=== PATIENT | female | born 1965 | race Caucasian/White ===

== ENCOUNTER → 2018-04-27 13:51 | Outpatient (CLI) | payer OTHER, SELFPAY ==
--- NOTE | 2018-04-27 13:54 | BI_ITS ---
MAMMOGRAPHY - BILATERAL SCREENING REASON FOR EXAM: Female, 52 years old. Routine annual screening examination. PERTINENT HISTORY: Sister with breast cancer. Aunts with breast cancer. TECHNIQUE: Digital bilateral breast parrish (3D mammographic acquisition) in the CC and MLO projections. 2-D mediolateral oblique (MLO) and craniocaudad (CC) views of both breasts were obtained. CAD: Full Field Digital Mammography with Computer Added Detection was performed. COMPARISON: Comparison is made with prior examination dated April 05, 2015 and December 14, 2013. FINDINGS: Breast Composition: There are scattered areas of fibroglandular density. There are no dominant masses or suspicious calcifications. Stable appearance of the bilateral axillary lymph nodes. No other significant abnormalities are identified. There has been no significant change since the prior study. BI/SCREENING MAMM (CAD), BILAT IMPRESSION: Stable bilateral screening mammogram. Yearly follow-up mammogram recommended. (A) ASSESSMENT CATEGORY: BIRADS Category 1: Negative. A letter regarding these results will be sent to the patient by the facility within 30 days. Approximately 10% of breast cancers are not detected by mammography. A normal mammogram should not delay biopsy of a clinically suspicious abnormality. [id number] Electronically Signed: Venancio Thacker MD at 15:26 EST Tel [phone], Service support ,
--- NOTE | 2018-04-27 14:29 | ECHOD_ITS ---
Reason For Study: BICUSPID AV Procedure This was a 2D Doppler, Color Flow transthoracic echocardiogram. The exam was of fair technical quality due to body habitus. Exam performed in department. Left Ventricle Normal LV size. Mild concentric left ventricular hypertrophy. Left ventricular systolic function is normal. The estimated ejection fraction is 65 %. There is evidence of diastolic dysfunction. No regional wall motion abnormalities noted. Apical wall motion abnormality may reflect pacemaker activation. Right Ventricle Normal RV size. ICD or pacer leads identified within the right ventricle. Normal systolic function. Atria The left atrium is mildly enlarged. Normal right atrium. ICD or pacer leads identified within the right atrium. No doppler evidence for ASD. Mitral Valve There is mild mitral annular calcification. Extension of the mitral annular calcification onto the posterior mitral valve leaflet. Mild (1+) eccentric mitral valve insufficiency. Tricuspid Valve Normal tricuspid valve. Moderate (2+) tricuspid valve insufficiency. Right ventricular systolic pressure estimated to be 29 mmHg. Aortic Valve The aortic valve is not well visualized. Moderate focal aortic valve thickening. Moderate focal aortic valve calcification. Severe aortic stenosis. Trivial aortic valve insufficiency. Pulmonic Valve The pulmonic valve is not well visualized. Trivial pulmonic valve insufficiency. Great Vessels Normal sized aortic root. Pericardium/Pleural No pericardial effusion. MMode/2D Measurements & Calculations LVIDd: 4.2 cm IVSd: 1.4 cm LVOT diam: 2.1 cm LVIDs: 2.9 cm LVPWd: 1.3 cm LVOT area: 3.6 cm2 RVDd: 3.8 cm FS: 29.7 % Ao root diam: 3.5 cm LAV(MOD-bp): 79.1 ml LVAd ap4: 27.5 cm2 LAV(MOD-bp) Indexed: 36.5 ml/m2 EDV(MOD-sp4): 75.6 ml LAV(MOD-sp2): 80.9 ml EDV(sp4-el): 79.5 ml LAV(MOD-sp4): 71.3 ml LVAs ap4: 14.0 cm2 ESV(MOD-sp4): 26.1 ml ESV(sp4-el): 26.9 ml EF(MOD-sp4): 65.5 % EF(sp4-el): 66.1 % SV(MOD-sp4): 49.5 ml SV(sp4-el): 52.6 ml Aortic Valve Planimetry: 1.0 cm2 LA A4 area: 23.2 cm2 LA dimension(2D): 3.5 cm RA A4 area: 17.7 cm2 Time Measurements MV dec time: 0.16 sec Doppler Measurements & Calculations MV E max anderson: 106.1 cm/sec Lat Peak E' Anderson: 7.0 cm/sec Med Peak E' Anderson: 4.6 cm/sec MV A max anderson: 57.4 cm/sec E/E' lat: 15.2 E/E' med: 22.8 MV E/A: 1.8 Ao V2 max: 401.6 cm/sec AI max anderson: 466.4 cm/sec LV V1 max: 92.7 cm/sec Ao max P.8 mmHg AI max P.0 mmHg LV V1 max P.4 mmHg Ao V2 mean: 317.2 cm/sec AI dec slope: 312.6 cm/sec2 LV V1 mean P.0 mmHg Ao mean P.0 mmHg AI P1/2t: 437.0 msec LV V1 mean: 65.9 cm/sec Ao V2 VTI: 106.9 cm LV V1 VTI: 24.0 cm DAYTON(I,D): 0.81 cm2 DAYTON(V,D): 0.83 cm2 SV(LVOT): 86.2 ml PA V2 max: 92.2 cm/sec TR max anderson: 254.0 cm/sec TR max P.9 mmHg Interpretation Summary Left ventricular systolic function is normal. The estimated ejection fraction is 65 %. Mild concentric left ventricular hypertrophy. Apical wall motion abnormality may reflect pacemaker activation. The left atrium is mildly enlarged. There is mild mitral annular calcification. Extension of the mitral annular calcification onto the posterior mitral valve leaflet. Mild (1+) eccentric mitral valve insufficiency. Moderate (2+) tricuspid valve insufficiency. Severe aortic stenosis. Trivial aortic valve insufficiency. Trivial pulmonic valve insufficiency. Right ventricular systolic pressure estimated to be 29 mmHg. There is evidence of diastolic dysfunction. ICD or pacer leads identified within the right atrium ICD or pacer leads identified within the right ventricle. Ordering Physician: Carolina Leblanc/Daryl Lamb Referring Physician: DARYL ECHAVARRIA Performed By: Maricarmen Beltran, HERMINIOCS, RVT
== END ==
PROVIDERS: Family Provider Family Medicine; PCP Family Medicine; Visit Provider Family Medicine
DX: Q23.1 Congenital insufficiency of aortic valve (principal); Z12.31 Encounter for screening mammogram for malignant neoplasm of breast
CPT/HCPCS: 77063; 77067; 93306

== ENCOUNTER 2018-06-26 11:21 | Emergency (ER) | payer OTHER, SELFPAY ==
[2018-06-26 11:22] VITALS: BP 118/75; PULSE 69; RESP 16; TEMP 36.3; O2SAT 98; BMI 36.5
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
[2018-06-26] MEDS: Ondansetron ODT 4 MG Tablet PO (12:23)
[2018-06-26] MEDS: Ibuprofen 400 MG Tablet 800 MG PO (12:24)
[2018-06-26] MEDS: AMOXICILLIN 500 MG CAPSULE 1000 MG PO (12:24)
== END 2018-06-26 12:31 | disposition home or self-care (01) ==
LOC: ED 12:10
PROVIDERS: Emergency Provider Emergency Medicine; Family Provider Family Medicine; PCP Family Medicine
DX: S16.1XXA Strain of muscle, fascia and tendon at neck level, initial encounter (principal); S50.812A Abrasion of left forearm, initial encounter; S39.91XA Unspecified injury of abdomen, initial encounter; Y04.2XXA Assault by strike against or bumped into by another person, initial encounter; Y93.89 Activity, other specified; Y92.89 Other specified places as the place of occurrence of the external cause; Y99.0 Civilian activity done for income or pay
CPT/HCPCS: 99285

== ENCOUNTER → 2018-07-20 17:08 | Outpatient (CLI) | payer OTHER, SELFPAY ==
[2018-07-20 16:52] VITALS: BMI 36.5
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
== END ==
PROVIDERS: Family Provider Family Medicine; PCP Family Medicine; Referring Provider Physician Assistant Surgical; Visit Provider Physician Assistant Surgical
DX: S39.012A Strain of muscle, fascia and tendon of lower back, initial encounter (principal)
CPT/HCPCS: 72040; 72072; 72110

== ENCOUNTER → 2018-07-29 17:15 | Outpatient (CLI) | payer OTHER, SELFPAY ==
[2018-07-20 16:52] VITALS: BMI 36.5
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
== END ==
PROVIDERS: Family Provider Family Medicine; PCP Family Medicine; Referring Provider Physician Assistant Surgical; Visit Provider Physician Assistant Surgical
DX: S16.1XXA Strain of muscle, fascia and tendon at neck level, initial encounter (principal)
CPT/HCPCS: 70450

== ENCOUNTER 2018-09-18 13:30 | Outpatient (RCR) | payer OTHER, SELFPAY ==
[2018-08-28 10:11] VITALS: BMI 36.5
[2018-09-07 09:43] VITALS: BMI 36.3
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
--- NOTE | 2018-10-21 18:57 | HP.PT.NRP ---
HP - Discharge Summary (1) - Patient Information KELVIN GATES was seen in my office for initial evaluation on 09/07/18. The following Plan of Care was established for this patient: Initial Frequency: 2x /Week Initial Duration: 4 Weeks This patient was last seen in our office . Pertinent comments regarding their Physical therapy will appear below: At this point I will be discontinuing this patient from physical therapy. I would be happy to see this patient again in the future if found appropriate by the physician. Thank you! Jania Vieyra, MPT
== END 2018-09-18 19:00 | disposition home or self-care (01) ==
LOC: PT 13:30
PROVIDERS: Family Provider Family Medicine; PCP Family Medicine; Referring Provider Physician Assistant Surgical; Visit Provider Physician Assistant Surgical
DX: S06.0X9D Concussion with loss of consciousness of unspecified duration, subsequent encounter (principal)
CPT/HCPCS: 97124; 97161; 97530

== ENCOUNTER → 2018-10-14 | Outpatient (CLI) | payer OTHER, SELFPAY ==
[2018-10-01 06:50] VITALS: BMI 36.3
[2018-10-14 17:37] LABS: Absolute Lymphocyte Count 2.48 X10^3/ul (0.83-4.51); Absolute Neutrophil Count 5.9 X10^3/uL (2.0-7.7); Basophil# 0.04 X10^3/uL; Basophil% 0.4 % (0-1); Eosinophil# 0.11 X10^3/uL; Eosinophils% 1.2 % (0-5); Hematocrit 42.8 % (37-47); Hemoglobin 14.4 g/dl (12.0-15.0); Lymphocyte # 2.48 X10^3/ul (4.0); Lymphocyte % 27.3 % (19-41); Mean Corp Hgb Conc 33.6 g/gl (32-36); Mean Corpuscular Hgb 30.8 pg (27.0-32.0); Mean Corpuscular Volume 91.5 fL (81-99); Mean Platelet Vol. 9.6 fl (6.2-12.0); Monocyte# 0.52 X10^3/uL; Monocyte% 5.7 % (0-10); Neutrophil % 65.2 % (47-70); Platelet Count 294 K/mm3 (150-450); RBC Distribution Width CV 13.2 % (11.6-14.6); RBC Distribution Width SD 43.4 fl (35.1-43.9); Red Blood Count 4.68 M/mm3 (4.2-5.4); White Blood Count 9.1 K/mm3 (4.4-11.0)
[2018-10-14 17:52] LABS: AST(SGOT) 20 U/L (15-37); Alanine Aminotransfer ALT/SGPT 36 U/L (13-56); Albumin, Serum 3.8 g/dL (3.2-5.0); Alkaline Phosphatase 110 U/L (45-117); Anion Gap 9 (5-15); BUN 12 mg/dL (7-18); BUN/Creat Ratio 13.1 RATIO (10-20); Calcium,Total 8.8 mg/dL (8.5-10.1); Chloride 102 mmol/L (98-107); Creatinine, Serum 0.92 mg/dL (0.55-1.02); EST Glomerular Filtration Rate 68 mL/min (>60); Est Glom Filt Rate - Afr Amer 82 mL/min (>60); Glucose 129 mg/dL (74-106); Lipase 196 U/L (73-393); POSITIVE COUNT NO; POSITIVE DIFFERENTIAL NO; POSITIVE MORPHOLOGY NO; Potassium 3.5 mmol/L (3.5-5.1); Protein, Total 7.8 g/dL (6.4-8.2); Sodium Level 140 mmol/L (136-145)
== END | disposition home or self-care (01) ==
LOC: MTLAB 16:09
PROVIDERS: Family Provider Family Medicine; PCP Family Medicine; Referring Provider Family Medicine; Visit Provider Family Medicine
DX: R10.9 Unspecified abdominal pain (principal)
CPT/HCPCS: 36415; 80053; 83690; 85025

== ENCOUNTER → 2018-10-20 | Outpatient (CLI) | payer OTHER, SELFPAY ==
[2018-10-01 06:50] VITALS: BMI 36.3
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
== END | disposition home or self-care (01) ==
LOC: CT 13:05
PROVIDERS: Family Provider Family Medicine; PCP Family Medicine; Referring Provider Family Medicine; Visit Provider Family Medicine
DX: R10.9 Unspecified abdominal pain (principal)
CPT/HCPCS: 74177; Q9967

== ENCOUNTER 2019-05-13 10:15 | Outpatient (RCR) | payer OTHER, SELFPAY ==
[2018-09-07 09:43] VITALS: BMI 36.3
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
== END 2019-05-13 19:00 | disposition home or self-care (01) ==
LOC: MASS 10:15
PROVIDERS: Family Provider Family Medicine; PCP Family Medicine; Referring Provider Family Medicine; Visit Provider Family Medicine
DX: M54.2 Cervicalgia (principal)
CPT/HCPCS: 97124

== ENCOUNTER → 2019-06-21 12:57 | Outpatient (CLI) | payer OTHER, SELFPAY ==
[2019-06-02 10:01] VITALS: BMI 36.8
--- NOTE | 2019-06-21 12:58 | ECHOD_ITS ---
Reason For Study: Murmur Procedure This was a 2D Doppler, Color Flow transthoracic echocardiogram. The study was technically difficult. Exam performed in department. Left Ventricle Normal LV size. Moderate concentric left ventricular hypertrophy. Mid cavitary false tendon noted. Left ventricular systolic function is normal. The estimated ejection fraction is 65 %. There is evidence of diastolic dysfunction. No regional wall motion abnormalities noted. Right Ventricle Normal RV size. ICD or pacer leads identified within the right ventricle. Normal systolic function. Atria The left atrium is moderately enlarged. Normal right atrium. ICD or pacer leads identified within the right atrium. No doppler evidence for ASD. Mitral Valve There is mild mitral annular calcification. Extension of the mitral annular calcification onto the base of the posterior mitral valve leaflet. Mild (1+) mitral valve insufficiency. Tricuspid Valve Normal tricuspid valve. Moderate (2+) tricuspid valve insufficiency. Right ventricular systolic pressure estimated to be 29 mmHg. Aortic Valve Based upon the 2D echocardiographic images obtained the aortic valve leaflets are not well visualized, however, based upon the images obtained there appears to be a bicuspid appearing aortic valve with diffuse thickening, calcification, and restriction. Severe aortic stenosis. Trivial aortic valve insufficiency. Pulmonic Valve The pulmonic valve is not well visualized. Trivial pulmonic valve insufficiency. Great Vessels Normal sized aortic root. Pericardium/Pleural No pericardial effusion. MMode/2D Measurements & Calculations LVIDd: 4.4 cm IVSd: 1.5 cm LVOT diam: 2.1 cm LVIDs: 2.7 cm LVPWd: 1.6 cm LVOT area: 3.6 cm2 FS: 39.5 % Ao root diam: 3.4 cm LAV(MOD-bp): 82.7 ml Aortic Valve Planimetry: 0.63 cm2 LA dimension: 3.8 cm LAV(MOD-bp) Indexed: 37.5 ml/m2 LAV(MOD-sp2): 80.1 ml LAV(MOD-sp4): 71.8 ml LA A4 area: 20.7 cm2 RA A4 area: 16.5 cm2 Time Measurements MV dec time: 0.27 sec Doppler Measurements & Calculations MV E max anderson: 74.4 cm/sec Lat Peak E' Anderson: 5.4 cm/sec Med Peak E' Anderson: 6.0 cm/sec MV A max anderson: 78.7 cm/sec E/E' lat: 13.9 E/E' med: 12.4 MV E/A: 0.95 MV V2 max: 87.6 cm/sec MV P1/2t max anderson: 87.6 cm/sec Ao V2 max: 458.1 cm/sec MV max P.1 mmHg MV P1/2t: 90.5 msec Ao max P.0 mmHg MV V2 mean: 55.5 cm/sec MV dec slope: 283.6 cm/sec2 Ao V2 mean: 338.8 cm/sec MV mean P.4 mmHg Ao mean P.6 mmHg MV V2 VTI: 26.4 cm MVA(P1/2t): 2.4 cm2 Ao V2 VTI: 117.6 cm MVA(VTI): 3.0 cm2 DAYTON(I,D): 0.67 cm2 DAYTON(V,D): 0.68 cm2 AI max anderson: 435.7 cm/sec LV V1 max: 86.2 cm/sec SV(LVOT): 78.8 ml AI max P.9 mmHg LV V1 max P.0 mmHg LV V1 mean P.5 mmHg AI dec slope: 325.4 cm/sec2 LV V1 mean: 56.6 cm/sec AI P1/2t: 392.2 msec LV V1 VTI: 21.8 cm PA V2 max: 74.2 cm/sec TR max anderson: 256.7 cm/sec TR max P.4 mmHg Interpretation Summary Left ventricular systolic function is normal. The estimated ejection fraction is 65 %. Moderate concentric left ventricular hypertrophy. Mid cavitary false tendon noted. The left atrium is moderately enlarged. There is mild mitral annular calcification. Extension of the mitral annular calcification onto the base of the posterior mitral valve leaflet. Mild (1+) mitral valve insufficiency. Moderate (2+) tricuspid valve insufficiency. Based upon the 2D echocardiographic images obtained the aortic valve leaflets are not well visualized, however, based upon the images obtained there appears to be a bicuspid appearing aortic valve with diffuse thickening, calcification, and restriction. Severe aortic stenosis. Trivial aortic valve insufficiency. Trivial pulmonic valve insufficiency. Right ventricular systolic pressure estimated to be 29 mmHg. There is evidence of diastolic dysfunction. ICD or pacer leads identified within the right atrium ICD or pacer leads identified within the right ventricle. Ordering Physician: Daryl Lamb Referring Physician: Daryl Heaton Performed By: Jatin Little, ALICE
== END ==
PROVIDERS: Family Provider Family Medicine; PCP Family Medicine; Referring Provider Internal Medicine Cardiovascular Disease; Visit Provider Internal Medicine Cardiovascular Disease
DX: Z86.79 Personal history of other diseases of the circulatory system (principal); Z98.890 Other specified postprocedural states
CPT/HCPCS: 93306

== ENCOUNTER → 2019-07-02 12:40 | Outpatient (CLI) | payer OTHER, SELFPAY ==
[2019-06-02 10:01] VITALS: BMI 36.8
--- NOTE | 2019-07-02 12:43 | BI_ITS ---
MAMMOGRAPHY - BILATERAL SCREENING REASON FOR EXAM: Female, 53 years old. Routine annual screening examination. PERTINENT HISTORY: Sister with breast cancer. Aunts with breast cancer. TECHNIQUE: Digital bilateral breast sandra (3D mammographic acquisition) in the CC and MLO projections. 2-D mediolateral oblique (MLO) and craniocaudad (CC) views of both breasts were obtained. CAD: Full Field Digital Mammography with Computer Added Detection was performed. COMPARISON: Comparison is made with prior examination dated April 27, 2018 and April 05, 2015. FINDINGS: Breast Composition: The breasts are almost entirely fatty. There are no dominant masses or suspicious calcifications. No other significant abnormalities are identified. There has been no significant change since the prior study. BI/SCREEN MAMM (CAD) W/SANDRA BILAT IMPRESSION: Stable bilateral screening mammogram. Yearly follow-up mammogram recommended. (A) ASSESSMENT CATEGORY: BIRADS Category 1: Negative. A letter regarding these results will be sent to the patient by the facility within 30 days. Approximately 10% of breast cancers are not detected by mammography. A normal mammogram should not delay biopsy of a clinically suspicious abnormality. [id number] Electronically Signed: Venancio Thacker, at 14:08 EST , Service support ,
== END ==
PROVIDERS: Family Provider Family Medicine; PCP Family Medicine; Referring Provider Family Medicine; Visit Provider Family Medicine
DX: Z12.31 Encounter for screening mammogram for malignant neoplasm of breast (principal)
CPT/HCPCS: 77063; 77067

== ENCOUNTER → 2019-07-10 15:54 | Outpatient (CLI) | payer OTHER, SELFPAY ==
[2019-06-02 10:01] VITALS: BMI 36.8
--- NOTE | 2019-07-10 16:00 | RAD_ITS ---
STUDY: X-RAY CHEST REASON FOR EXAM: Female, 53 years old. chest discomfort, patient having heart cath in near future TECHNIQUE: PA and lateral views of the chest. COMPARISON: 06/14/2011. FINDINGS: There is a dual-lead left-sided pacemaker in place. The lungs are clear and expanded. There is no demonstrated pleural abnormality. Normal size heart. Normal mediastinum and cheryl. Normal visualized pulmonary arteries. Normal visualized aortic arch and descending thoracic aorta. Normal visualized thoracic spine. Normal visualized ribs, clavicles, and shoulders. There is no demonstrated abnormality of the visualized soft tissue structures of the upper abdomen. RAD/Chest PA and Lateral IMPRESSION: Normal x-ray examination of the chest. Electronically Signed: Keisha Osullivan MD at 0:33 EST , Service support ,
[2019-07-10 16:36] LABS: Hematocrit 42.7 % (37-47); Hemoglobin 14.2 g/dL (12.0-15.0); Mean Corp Hgb Conc 33.3 g/dL (32-36); Mean Corpuscular Hgb 30.7 pg (27.0-32.0); Mean Corpuscular Volume 92.2 fL (81-99); Mean Platelet Vol. 9.4 fl (6.2-12.0); Platelet Count 257 K/mm3 (150-450); RBC Distribution Width CV 12.7 % (11.6-14.6); Red Blood Count 4.63 M/mm3 (4.2-5.4); White Blood Count 8.1 K/mm3 (4.4-11.0)
[2019-07-10 16:45] LABS: Prothrombin Time (Protime)PT. 12.9 SECONDS (11.7-14.9)
[2019-07-10 16:46] LABS: Partial Thromboplast Time 28.1 Seconds (24.1-36.2)
[2019-07-10 16:54] LABS: Anion Gap 6 (5-15); BUN 14 mg/dL (7-18); BUN/Creat Ratio 14.4 RATIO (10-20); Calcium,Total 8.9 mg/dL (8.5-10.1); Chloride 108 mmol/L (98-107); Creatinine, Serum 0.97 mg/dL (0.55-1.02); EST Glomerular Filtration Rate 63 mL/min (>60); Est Glom Filt Rate - Afr Amer 76 mL/min (>60); Glucose 151 mg/dL (74-106); Potassium 3.7 mmol/L (3.5-5.1); Sodium Level 141 mmol/L (136-145)
== END ==
PROVIDERS: PCP Family Medicine; Visit Provider Internal Medicine Cardiovascular Disease
DX: I35.0 Nonrheumatic aortic (valve) stenosis (principal); I42.9 Cardiomyopathy, unspecified; I47.1 Supraventricular tachycardia; I47.2 Ventricular tachycardia; R07.9 Chest pain, unspecified; Z86.79 Personal history of other diseases of the circulatory system; Z95.810 Presence of automatic (implantable) cardiac defibrillator; Z98.890 Other specified postprocedural states
CPT/HCPCS: 36415; 71046; 80048; 85027; 85610; 85730

== ENCOUNTER 2019-07-27 08:01 | Day surgery (SDC) | payer OTHER, SELFPAY ==
[2019-06-02 10:01] VITALS: BMI 36.8
[2019-07-26 08:49] VITALS: BMI 36.8
--- NOTE | 2019-07-27 08:53 | HP.PCM_ITS ---
<Carolina Leblanc - Last Filed: 07/27/19 09:19> History and Physical Date of Admission: 07/27/19 KELVIN GATES, is a 53 year old white female who presents for a diagnostic heart cath to further evaluate her Aortic Valve. She has a history of underlying PSVT, complete heart block, NSVT, aortic valve disorder status post repair, aortic root disorder status post repair, ICD placement. 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 She has remained active. She has denied symptoms of classic angina pectoris or overt CHF or pulmonary edema. There has been no near syncope or syncope. She does note at times she has a somewhat reproducible right-sided chest discomfort. It does not inhibit her from any activities. It does not necessarily worsen with any activities. She also notes brief episodes of tachycardia. She has had her device interrogated recently. Her battery longevity is approximately 2 years. She does have brief episodes of nonsustained VT. This is not new for her. At her last OV since it has been greater than one year she underwent an echocardiogram to evaluate her AV. Echocardiogram in 05/2019 demonstrated Left ventricular systolic function is normal. The estimated ejection fraction is 65 %. Moderate concentric left ventricular hypertrophy. Mid cavitary false tendon noted. The left atrium is moderately enlarged. There is mild mitral annular calcification. Extension of the mitral annular calcification onto the base of the posterior mitral valve leaflet. Mild (1+) mitral valve insufficiency. Moderate (2+) tricuspid valve insufficiency. Based upon the 2D echocardiographic images obtained the aortic valve leaflets are not well visualized, however, ba sed upon the images obtained there appears to be a bicuspid appearing aortic valve with diffuse thickening, calcification, and restriction. Severe aortic stenosis. Trivial aortic valve insufficiency. Trivial pulmonic valve insufficiency. Right ventricular systolic pressure estimated to be 29 mmHg. There is evidence of diastolic dysfunction. ICD or pacer leads identified within the right atrium ICD or pacer leads identified within the right ventricle. Based on the worsening stenosis of her AV, she was referred to CT surgery at [facility]. It was felt that she was not a candidate for a TAVR, they were requesting a heart cath prior to surgery for her valve. She is here today for further evaluation. Intake Vital Signs See chart Allergies iodine Allergy (Severe, Verified 06/02/19 10:01) Unknown fluconazole [From Diflucan] Allergy (Verified 06/02/19 10:01) Hives hydroxychloroquine sulfate [From Plaquenil] Allergy (Verified 06/02/19 10:01) Hives prednisone Allergy (Verified 06/02/19 10:01) Unknown Sulfa (Sulfonamide Antibiotics) Allergy (Verified 06/02/19 10:01) Hives Medications See chart [facility] Medical History History of bicuspid aortic valve (Resolved) Essential hypertension (Chronic) NSVT (nonsustained ventricular tachycardia) (Chronic) PSVT (paroxysmal supraventricular tachycardia) (Chronic) Cardiomyopathy (Chronic) Implantable cardioverter-defibrillator (ICD) in situ (Chronic) Complete heart block (Chronic) Bulging of cervical intervertebral disc (Acute) Cervical strain, acute (Acute) Segmental and somatic dysfunction of cervical region (Acute) Segmental and somatic dysfunction of lumbar region (Acute) Segmental and somatic dysfunction of thoracic region (Acute) Strain of lumbar region (Acute) Arrhythmia requiring replacement of cardiac pacemaker (Chronic) Bulging of cervical intervertebral disc (Chronic) Bursitis of hip (Chronic) Diabetes type 2, controlled (Chronic) H/O: pneumonia (Chronic) Positive VIRGIL (antinuclear antibody) (Chronic) Cyst of right ovary (Resolved) H/O cardiac pacemaker (Resolved) History of hysterectomy (Resolved) Pericarditis (Resolved) S/P tubal ligation (Resolved) h/o r shoulder surgery (Resolved) Surgical History History of aortic valve repair (Resolved ~10/18/10) History of aortic root repair (Resolved ~10/18/10) History of radiofrequency ablation procedure for cardiac arrhythmia (Resolved ~1994) Hx of cholecystectomy (Resolved) S/P removal of thyroid nodule (Resolved) Family History Father Prostate cancer Diabetes Stomach ulcer Mother Hypertension Diabetes Heart disease Sister Breast cancer Social History (Updated 06/02/19 @ 12:24 by Daryl Lamb MD) Smoking Status: Former smoker second hand exposure: No alcohol intake: never substance use type: does not use caffeine: Yes Type: coffee Number of servings: 4 ROS Const Const: Positive for fatigue (tires more easily); negative for weakness, frequent falls, excessive sweating, weight gain or weight loss Eyes Eyes: Negative for transient loss of vision, blurry vision or change in vision ENT ENT: Negative for dizziness or balance problems Cardio Chest Pain: Yes Character: sharp Onset: at rest, exercise Location: right chest Duration: brief Palpitations: Yes (daily) feels like its: fast (tachy episodes occasional), other (Heart is hollow) Edema: None Muscle aches with walking: None Resp Respiratory: Positive for Cough (productive); negative for SOB with activity or SOB at rest GI GI: Negative vomiting or vomiting blood/hematemesis : Negative for hematuria Musc Musc: Positive for muscle aches/ myalgia (neck, back pain form injury); negative for muscle weakness, joint pain or balance problems Skin Skin: Negative non-healing lesions or rash Neuro Neuro: Negative for dizziness, lightheadedness, orthostatic symptoms, frequent falls, weakness or blurry vision Quang Hematologic/Lymphatic: Negative for easy bleeding Endo Endo: Positive for fatigue (tires more easily); negative for excessive sweating Psych Psych: Negative for anxiety or depression Allergy Allergy/Immunology: Negative for hives, Negative for rash Cardiology Exam Const Appearance: cooperative, healthy appearing, comfortable, no acute distress, well developed and well groomed Nutritional Appearance: overweight Orientation: alert, awake and oriented x3 Head Head: normal to inspection, normocephalic and atraumatic Ears: hearing grossly normal bilaterally Nose: external nose normal Face and Sinus: face symmetric Mouth: moist mucous membranes Teeth and gingiva: fair dentition Eyes Eyelids: eyelids normal Conjunctivae: conjunctivae normal Pupils: PERRL EOM: EOM intact bilaterally Neck Neck: normal visual inspection, full ROM and no JVD Carotids: Negative bruit Neck Mass: Negative Neck mass Chest Chest inspection: normal inspection of the chest, symmetric chest movement and Pacemaker/ICD Yes left pectoral incision Auscultation: Bilateral: Clear to Auscultation Cardio Palpation: normal PMI Rate: regular rate Rhythm: regular rhythm Heart sounds: S1 normal and S2 normal; negative rub, gallop or murmur Murmur: Grade 3/6, harsh, mid systolic, LLSB, LVOT, sternal notch and radiates to carotids GI GI: normal to inspection, soft and bowel sounds present; negative tender Neuro General: alert, awake, oriented x3 and moves all extremities Skin Skin: no rashes or lesions noted Extremities Pulses: Normal: Right Radial Pulse, Left Radial Pulse Lower Extremity Edema: Trace: Left Psych Psychological: normal affect Assessment & Plan 1. History of aortic valve repair Z98.890; Z86.79 Caprol stitches on each commissures and additional stitching of the redundant cusp to shorten it in the middle 10/18/10 Plan She will be undergoing a heart cath today, with plans of pursuing valvular repair/replacement. 2. History of aortic root repair Z98.890 Open aortic valvuloplasty w/cardiopulmonary bypass 10/18/10 Plan Again she will undergo a heart cath this morning to further assess her aortic valve for possible repair/replacement. 3. PSVT (paroxysmal supraventricular tachycardia) I47.1 ablation to 2 pathways 1994 Plan She has a history of PSVT status post ablation therapy. She appears, based on her recent ICD interrogation with no report of recurrent PSVT. She will greta nue her medical management and follow-up. 4. NSVT (nonsustained ventricular tachycardia) I47.2 Plan She does have a history of nonsustained VT. This is been demonstrated in the past. She is continuing medical therapy and follow-up. 5. Complete AV block I44.2 Plan She does have a history of AV block. She had a pacemaker in the past. She has an ICD presently. She continues with an underlying electronic ventricular paced rhythm. 6. Automatic implantable cardiac defibrillator in situ Z95.810 Plan Her ICD has been interrogated and appears to be functioning appropriately at this time. 7. Cardiomyopathy, unspecified type I42.9 Plan She will continue follow-up with echocardiographic studies which will help with respect to ongoing evaluation, medical therapy, etc. 8. Essential hypertension I10 Plan Her blood pressure appears to be recently well controlled at the moment. She will continue her current medical management. <Daryl Lamb - Last Filed: 07/27/19 09:34> History and Physical I have re-examined the patient. There are no clinical changes since date of exam.
--- NOTE | 2019-07-27 10:44 | CL.D_ITS ---
Patient Name: KELVIN GATES Study Date: 07/27/2019 Performing: Daryl Lamb MD Ht: 68.11 inches 173 cm : 1965 Wt: 242.51 lbs 110 kg Age: 53 Gender: female BSA: 2.22 PROCEDURE(S) PERFORMED DC11-AO ROOT ANGIO WITH HEART CATH IE30-RJL/COR CLINICAL PROFILE AND INDICATIONS Indications: Valvular Disease, Pre-Operative Evaluation Heart Failure: None Stress/Imaging Stress/Image Study Performed: No Angina Classification Anginal Classification w/in 2 Weeks: No symptoms CAD Presentations: No Sxs, no angina. CONCLUSIONS Single vessel CAD of the RCA: distal: smooth: eccentric: 10 % stenosis Aortic Root dilated Bicuspid aortic valve RECOMMENDATIONS Risk factor modification Medical therapy Surgery consult for Valve Replacement surgery DESCRIPTION OF PROCEDURE The patient arrived to the procedure lab. The risks and benefits of the procedure as well as a full d escription of our services here and current unavailability of surgical backup were fully explained to the patient and/or their significant other prior to the catheterization. The Timeout was completed, verifying the correct patient and procedure. The patient's procedural site was prepped and draped in the usual fashion. Local anesthetic was given subcutaneously to right radial region with Lidocaine 2% . Using a modified Seldinger technique, arterial access was obtained via the right radial artery, a 6 Fr sheath was inserted. Right Coronary Artery selective angiography was then performed in multiple v iews using a 5 Fr. 4.0 [place] catheter. Left Coronary Artery selective angiography was performed in mu ltiple views using a 5 Fr. 4.0 [place] catheter. Ascending (root) aorta selective angiography was then performed in single view. Ascending (root) aorta selective angiography was then performed in single view.The arterial sheath was pulled and a TR Band was applied for hemostasis CORONARY ANGIOGRAPHY DOMINANCE: Right Dominant LEFT HEART ASSESSMENT Left Ventricular Ejection Fraction: Not assessed LEFT MAIN: Angiographically normal LEFT ANTERIOR DESCENDING ARTERY: Angiographically normal CIRCUMFLEX ARTERY: Angiographically normal RIGHT CORONARY ARTERY: DISTAL RCA: smooth: eccentric: 10 % Stenosis VALVE FINDINGS: Bicuspid Aortic Valve AORTIC ROOT: Dilated COMPLICATIONS No Complications PROCEDURE MEDICATIONS Versed 0.5 mg IV Fentanyl 50 mcg IV Oxygen: 2 L/min via nasal cannula Heparin given IA 07/27/2019 09:54:25 Verapamil 2.5mg, Ntg 100mcgs, 2000 units of Heparin given IA 07/27/2019 09:54:25 SUMMARY OF HEMODYNAMIC DATA Time AIR REST ECG 08:18:16 AO 89/64 (76) SA 09:55:50 Signed By Daryl Lamb MD On 07/27/2019 10:43:44 Daryl Lamb MD
== END 2019-07-27 12:15 | disposition home or self-care (01) ==
LOC: CLSP 08:01
PROVIDERS: PCP Family Medicine; Referring Provider Internal Medicine Cardiovascular Disease; Visit Provider Internal Medicine Cardiovascular Disease
DX: Z01.810 Encounter for preprocedural cardiovascular examination (principal); I25.10 Atherosclerotic heart disease of native coronary artery without angina pectoris; I42.9 Cardiomyopathy, unspecified; I47.1 Supraventricular tachycardia; I47.2 Ventricular tachycardia; I44.2 Atrioventricular block, complete; I10 Essential (primary) hypertension; E11.9 Type 2 diabetes mellitus without complications; E66.3 Overweight; Z68.36 Body mass index [BMI] 36.0-36.9, adult; Z95.810 Presence of automatic (implantable) cardiac defibrillator; Z87.891 Personal history of nicotine dependence; Z79.82 Long term (current) use of aspirin; Z79.84 Long term (current) use of oral hypoglycemic drugs
CPT/HCPCS: 93454; 93567; 99152; 99153; J7040; Q9967; C1769; C1894

== ENCOUNTER → 2019-07-29 | Outpatient (CLI) | payer OTHER, SELFPAY ==
[2019-07-26 08:49] VITALS: BMI 36.8
[2019-07-29 12:04] LABS: Anion Gap 2 (5-15); BUN 14 mg/dL (7-18); BUN/Creat Ratio 16.1 RATIO (10-20); Chloride 106 mmol/L (98-107); Creatinine, Serum 0.87 mg/dL (0.55-1.02); EST Glomerular Filtration Rate 72 mL/min (>60); Est Glom Filt Rate - Afr Amer 87 mL/min (>60); Glucose 107 mg/dL (74-106); Potassium 4.1 mmol/L (3.5-5.1); Sodium Level 139 mmol/L (136-145)
== END | disposition home or self-care (01) ==
LOC: LAB 11:25
PROVIDERS: PCP Family Medicine; Referring Provider Internal Medicine Cardiovascular Disease; Visit Provider Internal Medicine Cardiovascular Disease
DX: I35.0 Nonrheumatic aortic (valve) stenosis (principal); I42.9 Cardiomyopathy, unspecified
CPT/HCPCS: 36415; 80048

== ENCOUNTER 2019-09-13 13:02 | Outpatient (RCR) | payer OTHER, SELFPAY ==
[2019-07-26 08:49] VITALS: BMI 36.8
[2019-09-13 13:33] LABS: Absolute Lymphocyte Count 1.41 X10^3/uL (0.83-4.51); Absolute Neutrophil Count 2.9 X10^3/uL (2.0-7.7); Basophil# 0.05 X10^3/uL; Eosinophils% 7.7 % (0-5); Hematocrit 30.5 % (37-47); Hemoglobin 9.8 g/dL (12.0-15.0); Lymphocyte # 1.41 X10^3/ul (4.0); Lymphocyte % 27.2 % (19-41); Mean Corp Hgb Conc 32.1 g/dL (32-36); Mean Corpuscular Volume 90.2 fL (81-99); Monocyte# 0.46 X10^3/uL; Monocyte% 8.9 % (0-10); NRBC Flagged by Analyzer 0 % (0-5); Neutrophil # 2.85 X10^3/uL (2.7-7.7); POSITIVE COUNT YES; Platelet Count 270 K/mm3 (150-450); RBC Distribution Width CV 12.7 % (11.6-14.6); RBC Distribution Width SD 41.5 fl (35.1-43.9); Red Blood Count 3.38 M/mm3 (4.2-5.4); White Blood Count 5.2 K/mm3 (4.4-11.0)
[2019-09-13 13:42] LABS: Differential Indicated SCAN CRITERIA MET
[2019-09-13 14:18] LABS: Creatinine, Serum 0.62 mg/dL (0.55-1.02); EST Glomerular Filtration Rate 105 mL/min (>60); Est Glom Filt Rate - Afr Amer 127 mL/min (>60); Potassium 3.5 mmol/L (3.5-5.1)
[2019-09-13 15:47] LABS: Differential Comment SCANNED
== END 2019-09-13 18:00 | disposition home or self-care (01) ==
LOC: HHLAB 13:02
PROVIDERS: PCP Family Medicine
DX: T81.49XA Infection following a procedure, other surgical site, initial encounter (principal); B96.5 Pseudomonas (aeruginosa) (mallei) (pseudomallei) as the cause of diseases classified elsewhere
CPT/HCPCS: 82565; 84132; 85025

== ENCOUNTER → 2019-11-25 | Outpatient (CLI) | payer OTHER, SELFPAY ==
[2019-09-20 12:31] VITALS: BMI 35.2
== END | disposition home or self-care (01) ==
LOC: LABSPEC 12:34
PROVIDERS: PCP Family Medicine; Visit Provider Family Medicine
DX: L91.0 Hypertrophic scar (principal)
CPT/HCPCS: 87070; 87077; 87186; 87205

== ENCOUNTER 2020-03-06 11:00 | Outpatient (RCR) | payer OTHER, SELFPAY ==
[2019-06-02 10:01] VITALS: BMI 36.8
--- NOTE | 2019-07-20 15:15 | MASS.EVAL_ITS ---
Massage Therapy Evaluation: Initial Evaluation Date: 07/19/2019 SUBJECTIVE: Antoinette is a 53 year old female who was referred to the [facility] facility for a massotherapy evaluation by Dr. Heaton with the diagnosis of low back pain. She presents today with the symptoms of pain, stiffness and tension in the neck, mid back, low back and hips. Antoinette reports having a work injury over a year ago that has caused a lot of pain throughout her body and having to get a lot of medical treatment. She reports that at this time trigger point therapy has decreased her pain since her treatment in April of 2019. OBJECTIVE: Upon observation Antoinette has some posture issues with her head and shoulders forward from the neutral position in sitting and standing. After examination and palpation, I found Antoinette to have high muscle tension with tenderness and myofascial restrictions in her sub occipitals, levator scapulae, trapezius, rhomboids, scalenes, and thoracic paraspinals. Her QL?s and lumbar paraspinals all were very tight with fascial restrictions, tender points and trigger points. The first treatment consisted of a one hour massage to her upper body with myofascial release, muscle stripping, trigger point compression techniques, and cervical manual traction. ASSESSMENT: I feel that Antoinette is a good candidate for massotherapy at this time. She had a favorable response to the first treatment with reduction in her muscle aches, pain and tension. She also had improvement in her cervical flexibility and low back flexibility. PLAN: The plan of care was reviewed with the patient. The patient is to be seen on an as needed basis for a total of ten sessions with the recommendation of once every month for a one hour treatment.
--- NOTE | 2020-06-20 12:27 | MASS.DISCH ---
Massage Therapy Discharge Summary: Discharge Date: 06/20/2020 Antoinette was seen for a massotherapy evaluation on 07/19/2019 with the diagnosis of back and neck pain and headaches. She was treated with five sessions of massage therapy consisting of deep pressure soft tissue techniques, myofascial release and trigger point compression to her cervical, thoracic, lower back and hips. Antoinette responded well to the therapy by reporting decreased tension and pain throughout her neck, shoulders, lower back and hips. At this time this patient is being discharged from our care at [facility] facility.
== END 2020-03-06 19:00 | disposition home or self-care (01) ==
LOC: MASS 11:00
PROVIDERS: Family Provider Family Medicine; PCP Family Medicine; Referring Provider Family Medicine; Visit Provider Family Medicine
DX: M54.5 Low back pain (principal)
CPT/HCPCS: 97124

== ENCOUNTER 2020-03-08 10:37 | Outpatient (RCR) | payer OTHER, SELFPAY ==
[2019-12-03 15:12] VITALS: BMI 35.2
== END 2020-03-22 23:59 ==
LOC: EMPH 10:37
PROVIDERS: PCP Family Medicine; Visit Provider Family Medicine Geriatric Medicine
DX: Z11.59 Encounter for screening for other viral diseases (principal)
CPT/HCPCS: 87635; U0003

== ENCOUNTER 2020-04-20 08:30 | Outpatient (RCR) | payer OTHER, SELFPAY ==
[2019-12-03 15:12] VITALS: BMI 35.2
[2020-03-28 14:58] VITALS: BMI 35.2
== END 2020-04-22 23:59 ==
LOC: EMPH 08:30
PROVIDERS: PCP Family Medicine; Referring Provider Family Medicine Geriatric Medicine; Visit Provider Family Medicine Geriatric Medicine
DX: Z03.818 Encounter for observation for suspected exposure to other biological agents ruled out (principal)
CPT/HCPCS: 87426

== ENCOUNTER 2020-05-17 15:58 | Outpatient (RCR) | payer OTHER, SELFPAY ==
[2020-03-28 14:58] VITALS: BMI 35.2
[2020-05-04 15:16] LABS: Probe Check PASS; Specimen Processing Control PASS
== END 2020-05-22 23:59 ==
LOC: EMPH 15:58
PROVIDERS: PCP Family Medicine; Referring Provider Family Medicine Geriatric Medicine; Visit Provider Family Medicine Geriatric Medicine
DX: Z03.818 Encounter for observation for suspected exposure to other biological agents ruled out (principal)
CPT/HCPCS: 87426; 87635; U0002

== ENCOUNTER → 2020-06-13 11:00 | Outpatient (CLI) | payer OTHER, SELFPAY ==
[2020-05-31 13:35] VITALS: BMI 35.9
--- NOTE | 2020-06-13 11:02 | ECHOD_ITS ---
Reason For Study: Valve Replacement eval Procedure This was a 2D Doppler, Color Flow transthoracic echocardiogram. The exam was of adequate technical quality. Exam performed in department. Left Ventricle Normal LV size. Mild concentric left ventricular hypertrophy. Left ventricular systolic function is normal. The estimated ejection fraction is 60 %. Post operative septal motion. Diastolic function is indeterminate. No regional wall motion abnormalities noted. Right Ventricle Normal RV size. ICD or pacer leads identified within the right ventricle. Normal systolic function. Atria The left atrium is mildly enlarged. Normal right atrium. ICD or pacer leads identified within the right atrium. No doppler evidence for ASD. Mitral Valve There is mild to moderate mitral annular calcification. Extension of the mitral annular calcification on the base of the posterior mitral valve leaflet. Trivial mitral valve insufficiency. Tricuspid Valve Normal tricuspid valve. Moderate (2+) tricuspid valve insufficiency. Right ventricular systolic pressure estimated to be 28 mmHg. Aortic Valve Stable appearing bioprosthetic aortic valve apparatus. Pulmonic Valve The pulmonic valve is not well visualized. Great Vessels Normal sized aortic root. Pericardium/Pleural No pericardial effusion. MMode/2D Measurements & Calculations LVIDd: 4.3 cm IVSd: 1.3 cm LVOT diam: 2.1 cm LVIDs: 2.8 cm LVPWd: 1.4 cm LVOT area: 3.5 cm2 RVDd: 3.9 cm FS: 34.1 % Ao root diam: 3.4 cm LAV(MOD-bp): 65.5 ml LA A4 area: 18.2 cm2 LA dimension: 3.7 cm LAV(MOD-bp) Indexed: 30.2 ml/m2 LAV(MOD-sp2): 75.3 ml LAV(MOD-sp4): 50.3 ml RA A4 area: 16.8 cm2 Time Measurements MV dec time: 0.23 sec Doppler Measurements & Calculations MV E max anderson: 101.9 cm/sec Lat Peak E' Anderson: 9.2 cm/sec Med Peak E' Anderson: 4.8 cm/sec MV A max anderson: 79.8 cm/sec E/E' lat: 11.1 E/E' med: 21.3 MV E/A: 1.3 MV V2 max: 86.1 cm/sec MV P1/2t max anderson: 81.5 cm/sec Ao V2 max: 224.0 cm/sec MV max P.0 mmHg MV P1/2t: 107.7 msec Ao max P.1 mmHg MV V2 mean: 57.1 cm/sec MV dec slope: 221.6 cm/sec2 Ao V2 mean: 146.5 cm/sec MV mean P.4 mmHg Ao mean P.0 mmHg MV V2 VTI: 28.1 cm MVA(P1/2t): 2.0 cm2 Ao V2 VTI: 46.3 cm MVA(VTI): 3.0 cm2 DAYTON(I,D): 1.8 cm2 DAYTON(V,D): 1.8 cm2 LV V1 max: 113.2 cm/sec SV(LVOT): 85.3 ml PA V2 max: 86.7 cm/sec LV V1 max P.1 mmHg LV V1 mean P.5 mmHg LV V1 mean: 71.9 cm/sec LV V1 VTI: 24.2 cm TR max anderson: 249.1 cm/sec TR max P.8 mmHg Interpretation Summary Left ventricular systolic function is normal. The estimated ejection fraction is 60 %. Post operative septal motion. Mild concentric left ventricular hypertrophy. The left atrium is mildly enlarged. There is mild to moderate mitral annular calcification. Extension of the mitral annular calcification on the base of the posterior mitral valve leaflet. Trivial mitral valve insufficiency. Moderate (2+) tricuspid valve insufficiency. Stable appearing bioprosthetic aortic valve apparatus. Right ventricular systolic pressure estimated to be 28 mmHg. Diastolic function is indeterminate. ICD or pacer leads identified within the right atrium ICD or pacer leads identified within the right ventricle. Ordering Physician: Daryl Lamb Referring Physician: Daryl Heaton Performed By: Jatin Little RCS
== END ==
PROVIDERS: PCP Family Medicine; Referring Provider Internal Medicine Cardiovascular Disease; Visit Provider Internal Medicine Cardiovascular Disease
DX: I47.2 Ventricular tachycardia (principal); I42.9 Cardiomyopathy, unspecified; I47.1 Supraventricular tachycardia; Z95.810 Presence of automatic (implantable) cardiac defibrillator; Z95.3 Presence of xenogenic heart valve; Z98.890 Other specified postprocedural states
CPT/HCPCS: 93306

== ENCOUNTER 2020-06-21 14:05 | Outpatient (RCR) | payer OTHER, SELFPAY ==
[2020-03-28 14:58] VITALS: BMI 35.2
== END 2020-06-22 23:59 ==
LOC: EMPH 14:05
PROVIDERS: PCP Family Medicine; Referring Provider Family Medicine Geriatric Medicine; Visit Provider Family Medicine Geriatric Medicine
DX: Z03.818 Encounter for observation for suspected exposure to other biological agents ruled out (principal)
CPT/HCPCS: 87426

== ENCOUNTER 2020-07-21 14:16 | Outpatient (RCR) | payer OTHER, SELFPAY ==
[2020-05-31 13:35] VITALS: BMI 35.9
== END 2020-07-23 23:59 ==
LOC: EMPH 14:16
PROVIDERS: PCP Family Medicine; Referring Provider Family Medicine Geriatric Medicine; Visit Provider Family Medicine Geriatric Medicine
DX: Z03.818 Encounter for observation for suspected exposure to other biological agents ruled out (principal)
CPT/HCPCS: 87426

== ENCOUNTER 2020-08-12 11:30 | Outpatient (RCR) | payer OTHER, SELFPAY ==
[2020-05-31 13:35] VITALS: BMI 35.9
== END 2020-08-20 23:59 ==
LOC: EMPH 11:30
PROVIDERS: PCP Family Medicine; Referring Provider Family Medicine Geriatric Medicine; Visit Provider Family Medicine Geriatric Medicine
DX: Z03.818 Encounter for observation for suspected exposure to other biological agents ruled out (principal)
CPT/HCPCS: 87426

== ENCOUNTER → 2021-02-21 10:21 | Outpatient (CLI) | payer OTHER, SELFPAY ==
[2021-02-21 13:01] LABS: Hemoglobin A1c 6.5 % (3.8-5.6)
== END ==
PROVIDERS: PCP Family Medicine; Referring Provider Family Medicine; Visit Provider Family Medicine
DX: E11.9 Type 2 diabetes mellitus without complications (principal)
CPT/HCPCS: 36415; 83036

== ENCOUNTER 2021-06-19 12:30 | Outpatient (RCR) | payer OTHER, SELFPAY ==
--- NOTE | 2020-10-18 15:12 | MASS.EVAL_ITS ---
Massage Therapy Evaluation: Initial Evaluation Date: 10/17/2020 SUBJECTIVE: Antoinette is a 54 year old female who was referred to the [facility] facility for a massotherapy evaluation by Dr. Heaton with the diagnosis of low back pain. She presents today with the symptoms of pain, stiffness and tension in the neck, head, mid back, low back ,and hips. Antoinette reports having a past medical history of neck and back pain. She reports that she does get migraines a few times a year. OBJECTIVE: Upon observation Antoinette has some posture issues with her head and shoulders forward from the neutral position in sitting and standing. After examination and palpation, I found Antoinette to have high muscle tension with tenderness and myofascial restrictions in her sub occipitals, levator scapulae, trapezius, rhomboids, scalenes, and thoracic paraspinals. Her QL?s and lumbar paraspinals were very tight with fascial restrictions, tender points and trigger points. The first treatment consisted of a one hour massage to her upper body with myofascial release, muscle stripping, trigger point compression techniques, and cervical manual traction. ASSESSMENT: I feel that Antoinette is a good candidate for massotherapy at this time. She had a favorable response to the first treatment with reduction in her muscle aches, pain and tension. She also had improvement in her cervical flexibility and low back flexibility. PLAN: The plan of care was reviewed with the patient. The patient is to be seen on an as needed basis for a total of ten sessions with the recommendation of once every month for a one hour treatment.
--- NOTE | 2021-06-20 18:41 | MASS.DISCH ---
Massage Therapy Discharge Summary: Discharge Date: 06/20/2021 Antoinette was seen for a massotherapy evaluation on 10/17/2020 with the diagnosis of low back pain. She was treated with five sessions of massage therapy consisting of moderate to deep pressure soft tissue techniques, myofascial release and trigger point compression to her cervical, thoracic and lower back. Antoinette responded well to the therapy by reporting decreased tension and pain throughout her neck, shoulders and lower back. Her goals for therapy were met throughout the treatment sessions. At this time this patient is being discharged from our care at [facility] facility.
== END 2021-06-19 19:00 | disposition home or self-care (01) ==
LOC: MASS 12:30
PROVIDERS: PCP Family Medicine; Referring Provider Family Medicine; Visit Provider Family Medicine
DX: M54.50 Low back pain, unspecified (principal)
CPT/HCPCS: 97124

== ENCOUNTER 2021-07-19 10:02 | Outpatient (CLI) | payer OTHER, SELFPAY ==
--- NOTE | 2021-07-19 10:04 | CDU_ITS ---
Reason For Study: TIA Rt. Velocities/BP Lt. Velocities/BP Prox CCA 78.6/17.3 cm/sec. Prox CCA 70.6/16.8 cm/sec. Mid CCA 78.6/21.3 cm/sec. Mid CCA 70.6/22.3 cm/sec. Dist CCA 70.8/18.6 cm/sec. Dist CCA 69.5/21.2 cm/sec. Prox ICA 57.8/21.3 cm/sec. Prox ICA 39.5/15.1 cm/sec. Mid ICA 63/26.5 cm/sec. Mid ICA 68.3/32.5 cm/sec. Dist ICA 78.6/31.7 cm/sec. Dist ICA 67.4/30.8 cm/sec. Rt. ICA/CCA = 1.00. Lt. ICA/CCA = 0.97. Prox ECA 61.7/10.8 cm/sec. Prox ECA 89.3/14.6 cm/sec. Rt. Vert. 44.3/16.8 cm/sec. Lt. Vert. 31.5/12.3 cm/sec. Right Extracranial There is intimal thickening but no significant atherosclerotic plaque noted in the right common carotid artery. There is intimal thickening but no significant atherosclerotic plaque noted in the right internal carotid artery. There is intimal thickening but no significant atherosclerotic plaque noted in the right external carotid artery. Antegrade flow is noted in the right vertebral artery. Left Extracranial There is intimal thickening but no significant atherosclerotic plaque noted in the left common carotid artery. There is homogeneous, smooth atherosclerotic plaque noted in the left internal carotid artery. There is intimal thickening but no significant atherosclerotic plaque noted in the left external carotid artery. Antegrade flow is noted in the left vertebral artery. Procedure Carotid Duplex [id number]. This is a Carotid Duplex examination using B-mode, color flow and specral Doppler. Exam performed in department. VL/Carotid Duplex Ultrasound Interpretation Summary Intimal thickening at the proximal right internal carotid artery with less than 50% stenosis Less than 50% stenosis right external carotid artery Minimal smooth plaque left proximal internal carotid artery with less than 50% stenosis Less than 50% stenosis left external carotid artery Patent and antegrade vertebral arteries bilaterally Ordering Physician: Daryl Lamb Referring Physician: Daryl Heaton Performed By: Karina Roper RVT
--- NOTE | 2021-07-19 10:04 | ECHOD_ITS ---
Reason For Study: VALVE REPLACEMENT EVAL Procedure This was a 2D Doppler, Color Flow transthoracic echocardiogram. The study was technically difficult. Exam performed in department. Left Ventricle Normal LV size. Mid cavitary false tendon noted. Left ventricular systolic function is normal. The estimated ejection fraction is 60 %. Transmitral doppler flow suggestive of impaired relaxation of left ventricle. Right Ventricle Normal RV size. ICD or pacer leads identified within the right ventricle. Normal systolic function. Atria The left atrium is mildly enlarged. Normal right atrium. ICD or pacer leads identified within the right atrium. No doppler evidence for ASD. Mitral Valve There is mild mitral annular calcification. Extension of the mitral annular calcification on the base of the posterior mitral valve leaflet. The mitral papillary muscle appears thickened and/or calcified. Trivial mitral valve insufficiency. Tricuspid Valve Normal tricuspid valve. Moderate (2+) tricuspid valve insufficiency. Right ventricular systolic pressure estimated to be 21 mmHg. Aortic Valve Stable appearing bioprosthetic aortic valve apparatus. Pulmonic Valve The pulmonic valve is not well visualized. Great Vessels Normal sized aortic root. Pericardium/Pleural No pericardial effusion. MMode/2D Measurements & Calculations RVDd: 3.5 cm LVOT diam: 2.2 cm Ao root diam: 3.3 cm LVOT area: 3.7 cm2 LAV(MOD-bp): 56.9 ml LA dimension(2D): 4.0 cm LA A4 area: 16.2 cm2 LAV(MOD-bp) Indexed: 26.2 ml/m2 LAV(MOD-sp2): 68.5 ml LAV(MOD-sp4): 46.3 ml RA A4 area: 17.2 cm2 Time Measurements MV dec time: 0.18 sec Doppler Measurements & Calculations MV E max anderson: 64.0 cm/sec Lat Peak E' Anderson: 11.3 cm/sec Med Peak E' Anderson: 4.8 cm/sec MV A max anderson: 81.8 cm/sec E/E' lat: 5.7 E/E' med: 13.4 MV E/A: 0.78 Ao V2 max: 216.8 cm/sec LV V1 max: 126.2 cm/sec SV(LVOT): 104.2 ml Ao max P.8 mmHg LV V1 max P.5 mmHg Ao V2 mean: 150.4 cm/sec LV V1 mean P.9 mmHg Ao mean P.1 mmHg LV V1 mean: 92.9 cm/sec Ao V2 VTI: 47.6 cm LV V1 VTI: 27.9 cm DAYTON(I,D): 2.2 cm2 DAYTON(V,D): 2.2 cm2 PA V2 max: 78.6 cm/sec TR max anderson: 214.4 cm/sec TR max P.4 mmHg ECHO/Echo Complete Interpretation Summary The study was technically difficult. Left ventricular systolic function is normal. The estimated ejection fraction is 60 %. Mid cavitary false tendon noted. The left atrium is mildly enlarged. There is mild mitral annular calcification. Extension of the mitral annular calcification on the base of the posterior mitr al valve leaflet. The mitral papillary muscle appears thickened and/or calcified. Trivial mitral valve insufficiency. Moderate (2+) tricuspid valve insufficiency. Stable appearing bioprosthetic aortic valve apparatus. Right ventricular systolic pressure estimated to be 21 mmHg. Transmitral doppler flow suggestive of impaired relaxation of left ventricle ICD or pacer leads identified within the right atrium ICD or pacer leads identified within the right ventricle. Ordering Physician: Zainab^Daryl^^^ Referring Physician: Daryl Heaton Performed By: Su Meadows, RDCS, RVT
== END 2021-07-19 23:59 | disposition short-term general hospital (02) ==
PROVIDERS: PCP Family Medicine; Referring Provider Internal Medicine Cardiovascular Disease; Visit Provider Internal Medicine Cardiovascular Disease
DX: G45.9 Transient cerebral ischemic attack, unspecified (principal); Z95.3 Presence of xenogenic heart valve
CPT/HCPCS: 93306; 93880

== ENCOUNTER 2021-08-06 12:12 | Outpatient (CLI) | payer OTHER, SELFPAY | END 2021-08-06 23:59 | disposition home or self-care (01) | PROVIDERS: PCP Family Medicine; Referring Provider Internal Medicine Cardiovascular Disease; Visit Provider Internal Medicine Cardiovascular Disease | DX: I42.9 Cardiomyopathy, unspecified (principal); I44.2 Atrioventricular block, complete; I47.1 Supraventricular tachycardia; I47.2 Ventricular tachycardia; Z95.810 Presence of automatic (implantable) cardiac defibrillator; Z95.3 Presence of xenogenic heart valve; Z20.822 Contact with and (suspected) exposure to COVID-19 | CPT/HCPCS: 87426; C9803 ==

== ENCOUNTER 2021-08-09 06:39 | Day surgery (SDC) | payer OTHER, SELFPAY ==
[2021-08-03 14:20] LABS: Bacteria 0 SEEN /hpf (None Seen); Mucous, Urine 0 SEEN /hpf (<or=2+); Red Blood Cells-Urine 0 SEEN /hpf (0-5)
[2021-08-03 14:41] LABS: Hematocrit 38.7 % (37-47); Hemoglobin 12.3 g/dL (12.0-15.0); Mean Corp Hgb Conc 31.8 g/dL (32-36); Mean Corpuscular Hgb 27.2 pg (27.0-32.0); Mean Corpuscular Volume 85.6 fL (81-99); Mean Platelet Vol. 9.1 fl (6.2-12.0); Platelet Count 338 K/mm3 (150-450); RBC Distribution Width CV 14.6 % (11.6-14.6); RBC Distribution Width SD 45.1 fl (35.1-43.9); Red Blood Count 4.52 M/mm3 (4.2-5.4); White Blood Count 8.2 K/mm3 (4.4-11.0)
[2021-08-03 14:45] LABS: Color, Urine Yellow (Yellow); Glucose, Dipstick 1000 mg/dl (Normal); Ketone-Dipstick Negative (Negative); Leukocyte Esterase-Dipstick 100 /ul (Negative); Nitrite-Dipstick Negative (Negative); Occult Blood-Urine 10 /ul (Negative); Protein-Dipstick 15 mg/dl (Negative); Specific Gravity, Urine 1.015 (1.002-1.030); Urine Bilirubin Dipstick Negative (Negative); Urine Clarity Clear (Clear); Urine Urobilinogen Normal (Normal)
[2021-08-03 14:48] LABS: Prothrombin Time (Protime)PT. 12.6 SECONDS (11.7-14.9)
[2021-08-03 15:01] LABS: Squamous Epithelial Cells - UA 0-5 SEEN /hpf (5-10); White Blood Cells 0-5 SEEN /hpf (0-5)
[2021-08-03 15:07] LABS: Anion Gap 4 (5-15); BUN 13 mg/dL (7-18); BUN/Creat Ratio 14.6 RATIO (10-20); Calcium,Total 8.8 mg/dL (8.5-10.1); Chloride 103 mmol/L (98-107); Creatinine, Serum 0.89 mg/dL (0.55-1.02); EST Glomerular Filtration Rate 69 mL/min (>60); Est Glom Filt Rate - Afr Amer 84 mL/min (>60); Glucose 137 mg/dL (74-106); Potassium 3.8 mmol/L (3.5-5.1); Sodium Level 137 mmol/L (136-145)
[2021-08-08 12:36] VITALS: BMI 38.0
--- NOTE | 2021-08-09 09:22 | OP.PCM_ITS ---
Report of Operation Date of Procedure: 08/09/21 Description of Surgical Findings:: Diagnosis: ICD for seccondary prevention. Device generator replacement for normal battery depletion Preoperative diagnosis is device at end of life for normal battery depletion. Postoperative diagnosis same as above. After informed consent and IV antibiotics the patient was brought to the [facility] catheterization laboratory and the skin over the device was prepped and draped in the usual sterile manner. Intermittent boluses of Versed, and fentanyl were used for sedation and analgesia as well as 1% subcutaneous lidocaine. An incision was made over the pre-existing device. Using blunt and Bovie dissection the pocket was opened and the device was removed. Careful attention was paid not to injure the pre-existing leads. The leads were removed from the device header and they were interrogated. There is normal lead function except for unable to atrial capture. Pt has normal HURLEY and hence only requires atrial sensing. Has h/o CHB due to complication from RFA AVN. H/O VT with prior aortic valve replacement. Hemostasis was obtained. The pocket was flushed with antibiotic solution. The sponge and needle count were correct. The new device was brought to the field. The leads were placed in the appropriate position in the header and secured by the set screw. The leads and the device were then placed in the pocket. The pocket was closed with a deep layer of running 2-0 Vicryl, a superficial layer of running 4-0 Vicryl, skin with Steri-Strips which were covered with a rolled 4 x 4 and Tegaderm. Patient left the room with the device programmed to proper parameters and there were no complications. The device is a dual chamber [employer] ICD generator. Lead and device serial and model numbers are available in the chart documents provided by the device company sales representative leather goods procedure summary.
== END 2021-08-09 23:59 | disposition home or self-care (01) ==
LOC: CLSP 06:41
PROVIDERS: Internal Medicine Cardiovascular Disease; PCP Family Medicine; Referring Provider Internal Medicine Cardiovascular Disease; Visit Provider Internal Medicine Cardiovascular Disease
DX: Z45.010 Encounter for checking and testing of cardiac pacemaker pulse generator [battery] (principal); I42.9 Cardiomyopathy, unspecified; I47.1 Supraventricular tachycardia; I47.2 Ventricular tachycardia; I44.2 Atrioventricular block, complete; I10 Essential (primary) hypertension; Z86.73 Personal history of transient ischemic attack (TIA), and cerebral infarction without residual deficits; Z95.3 Presence of xenogenic heart valve
CPT/HCPCS: 33263; 36415; 80048; 81001; 85027; 85610; 93641; 99152; 99153; J7040; J7050

== ENCOUNTER 2021-09-16 15:39 | Emergency (ER) | payer OTHER, SELFPAY ==
[2021-09-16 15:40] VITALS: BP 148/86; PULSE 67; RESP 16; TEMP 35.8; O2SAT 100; BMI 36.0
--- NOTE | 2021-09-16 16:06 | RAD_ITS ---
STUDY: X-RAY - LEFT WRIST REASON FOR EXAM: Female, 55 years old. trauma TECHNIQUE: 3 view(s) of the wrist were obtained. COMPARISON: None. FINDINGS: Normal visualized distal radius and ulna. Normal radiocarpal articulation. Normal distal radioulnar articulation. Normal carpal bones. There is degenerative arthrosis of the carpal articulations. Normal carpometacarpal articulation of the thumb. Normal second through fifth carpometacarpal articulations. Normal visualized metacarpal bones. The soft tissue structures are unremarkable. RAD/Wrist min 3 Views IMPRESSION: No acute fracture or dislocation. Electronically Signed: Melecio Nicolas MD at 17:08 EDT ,
--- NOTE | 2021-09-16 16:06 | RAD_ITS ---
STUDY: X-RAY - LEFT HAND REASON FOR EXAM: Female, 55 years old. trauma TECHNIQUE: 3 view(s) of the hand. COMPARISON: None. FINDINGS: Normal radiocarpal articulation. Normal distal radioulnar joint. Normal visualized carpal bones. Normal carpal articulations Normal carpometacarpal articulation of the thumb. Normal second through fifth carpometacarpal joints. Normal metacarpi. Normal metacarpophalangeal joint of the thumb. Normal interphalangeal joint of the thumb. Normal proximal and distal phalanges of the thumb. Normal metacarpophalangeal joints of the second through fifth fingers. Normal proximal and distal interphalangeal joints of the second through fifth fingers. Normal phalanges of the second through fifth fingers. The soft tissue structures are unremarkable. RAD/Hand Min 3 Views IMPRESSION: Normal x-ray examination of the hand. Electronically Signed: Melecio Nicolas MD at 17:09 EDT ,
--- NOTE | 2021-09-16 16:06 | RAD_ITS ---
STUDY: X-RAY - LEFT ELBOW REASON FOR EXAM: Female, 55 years old. trauma TECHNIQUE: 3 view(s) of the elbow. COMPARISON: None. FINDINGS: Subtle acute nondisplaced oblique fracture of the medial aspect of the radial head and neck. Normal radiocapitellar and ulnotrochlear articulations. The soft tissue structures are unremarkable. RAD/Elbow min 3 Views IMPRESSION: Subtle acute nondisplaced oblique fracture the medial aspect of the radial head and neck. Electronically Signed: Melecio Nicolas MD at 17:10 EDT ,
[2021-09-16] MEDS: HYDROcodone Bitartrate/Apap 5/325 Tablet PO (16:48)
--- NOTE | 2021-09-16 17:59 | EDS_ITS ---
HPI History of Present Illness Chief Complaint: Upper Extremity Injury Informant: patient Occured/Mechanism Comment: tripped Onset/Context/Timing Onset: Today Associated Symptoms Associated Symptoms: Negative for Parasthesia and Weakness Narrative Narrative: Patient tripped and fell. She landed on her left arm and complains of pain to her left hand, left wrist, left elbow. Worse with movement and pronation supination. She sustained abrasions to her left knee. She did not hit her head or neck. She takes aspirin but no other blood thinners. [facility] Medical History Arrhythmia requiring replacement of cardiac pacemaker Bulging of cervical intervertebral disc Bulging of cervical intervertebral disc Bursitis of hip Cardiomyopathy Cervical strain, acute Complete heart block Cyst of right ovary Diabetes type 2, controlled Essential hypertension H/O cardiac pacemaker h/o r shoulder surgery H/O: pneumonia History of bicuspid aortic valve History of left heart catheterization (LHC) (~07/27/19) Implantable cardioverter-defibrillator (ICD) in situ Keloid cicatrix NSVT (nonsustained ventricular tachycardia) Pericarditis Positive VIRGIL (antinuclear antibody) PSVT (paroxysmal supraventricular tachycardia) Right groin wound Segmental and somatic dysfunction of cervical region Segmental and somatic dysfunction of lumbar region Segmental and somatic dysfunction of thoracic region Strain of lumbar region TIA (transient ischemic attack) Home Medications aspirin 81 mg PO DAILY@0800 10/24/13 [History Last Taken 07/27/19] loratadine 10 mg PO DAILY 05/05/17 [History Last Taken Unknown] folic acid 800 mcg tablet 800 mcg PO QDAY 06/26/17 [History Last Taken Unknown] metformin 500 mg tablet 500 mg PO .4 x qd tab 06/26/17 [History Last Taken Unknown] multivitamin 1 tab PO QDAY 06/26/17 [History Last Taken Unknown] dulaglutide 0.75 mg/0.5 mL subcutaneous pen injector 0.75 mg SC QWEEK 03/12/18 [History Last Taken Unknown] empagliflozin 10 mg tablet 10 mg PO DAILY 03/12/18 [History Last Taken Unknown] magnesium oxide 500 mg capsule 500 mg PO QDAY PRN cap 03/12/18 [History Last Taken Unknown] B-complex with vitamin C 1 cap PO DAILY 10/01/18 [History Last Taken Unknown] melatonin 5 mg tablet 5 mg PO HS PRN 10/01/18 [History Last Taken Unknown] naproxen sodium 220 mg capsule 220 mg PO BID PRN 06/02/19 [History Last Taken Unknown] pantoprazole 20 mg tablet,delayed release 40 mg PO DAILY tab 12/03/19 [History Last Taken Unknown] sotalol 120 mg tablet 120 mg PO BID #180 tab 05/15/20 [Rx Last Taken Unknown] duloxetine 30 mg capsule,delayed release 30 mg PO DAILY 12/29/20 [History Last Taken Unknown] potassium chloride 10 mEq tablet,extended release(part/cryst) 10 meq PO TID #270 tab 02/22/21 [Rx Last Taken Unknown] furosemide 40 mg tablet 40 mg PO DAILY #90 tab 05/21/21 [Rx Last Taken Unknown] oxycodone-acetaminophen [Percocet] 1 tab PO Q6H PRN 3 Days #12 tab 09/16/21 [Rx Last Taken Unknown] Allergy/AdvReac Type Severity Reaction Status Date / Time fluconazole [From Diflucan] Allergy Hives Verified 09/16/21 15:40 hydroxychloroquine sulfate Allergy Hives Verified 09/16/21 15:40 [From Plaquenil] prednisone Allergy Unknown Verified 09/16/21 15:40 Sulfa (Sulfonamide Allergy Hives Verified 09/16/21 15:40 Antibiotics) Family History Father Prostate cancer Diabetes Stomach ulcer Mother Hypertension Diabetes Heart disease Sister Breast cancer Surgical History History of aortic root repair (~10/18/10) History of aortic valve repair (~10/18/10) History of aortic valve replacement with bioprosthetic valve (08/17/19) History of hysterectomy History of radiofrequency ablation procedure for cardiac arrhythmia (~1994) Hx of cholecystectomy S/P removal of thyroid nodule S/P tubal ligation Social History Smoking Status: Never smoker second hand exposure: No alcohol intake: never substance use type: does not use caffeine: Yes Type: coffee Number of servings: 4 ROS ROS ED Constitutional Constitutional ED: Denies fever(s) Eyes Eyes: Denies change in vision ENT ENT ED: Denies ear pain Cardiovascular Cardiovascular: Denies chest pain Respiratory/Chest Respiratory/Chest: Denies dyspnea Gastrointestinal Gastrointestinal: Denies abdominal pain Genitourinary Genitourinary ED: Denies dysuria Musculoskeletal Musculoskeletal: Reports other Details: LUE Pain ; Denies myalgias Integumentary Reports Abrasions Neurologic Neurologic: Denies headache(s), paresthesias or weakness Psychiatric Psychiatric: Denies depression Hematologic/Lymphatic Hematologic/Lymphatic: Denies easy bruising Allergic/Immunologic Allergic/Immunologic ED: Denies urticaria EXAM Physical Exam Const Vital Signs: 09/16/21 15:40 Temperature 96.4 F L Temperature Source Temporal Pulse Rate 67 Respiratory Rate 16 Blood Pressure 148/86 H Blood Pressure Mean 106 Pulse Ox 100 Oxygen Delivery Method Room Air Positive well nourished and well developed General Appearance ED: well developed HEENT normocephalic Eyes EOMs intact bilaterally Resp normal respiratory effort Cardio regular rate Extremity Extremity Narrative: Tender to palpation at the base of the left thumb, left wrist, and left elbow Neuro no sensory deficits noted Sensorium / Orientation: alert Motor Exam: strength 5/5 throughout; Negative for general weakness Psych mental status grossly normal Skin Skin Narrative: Superficial abrasions to left knee Trauma: abrasion MDM MDM Radiography Diagnostic Testing: X-rays were reviewed by the radiologist and myself. She has a left radial head fracture which is nondisplaced. Her other x-rays including hand and wrist x-rays were unremarkable. She was placed in a long-arm posterior splint, fiberglass, fabricated by me. Copious padding. Neurovascularly intact distally after splint placement. Placed in a sling. I did check her prescription report and she has no active controlled prescriptions. She was prescribed Percocet and will follow up with Dr. Martinez. Disposition is discharged home Impression #1 left radial head fracture Impression #2 left wrist pain Impression #3 left hand pain Impression #4 left knee abrasions Clinical Impression(s) from Imaging Studies Elbow X-Ray 09/16/21 16:06 IMPRESSION: Subtle acute nondisplaced oblique fracture the medial aspect of the radial head and neck. Electronically Signed: Melecio Nicolas MD at 17:10 EDT , Hand X-Ray 09/16/21 16:06 IMPRESSION: Normal x-ray examination of the hand. Electronically Signed: Melecio Nicolas MD at 17:09 EDT , Wrist X-Ray 09/16/21 16:06 IMPRESSION: No acute fracture or dislocation. Electronically Signed: Melecio Nicolas MD at 17:08 EDT , Discharge Plan Triage Chief Complaint: Upper Extremity Injury ED Provider: Ross Barron Dx/Rx/DC Orders Instructions: ED Radial Head Fracture Prescriptions: New oxycodone-acetaminophen [Percocet] 5-325 mg tablet 1 tab PO Q6H PRN (Reason: pain) 3 Days Qty: 12 RF: 0 No Action multivitamin tablet 1 tab PO QDAY RF: 0 folic acid 800 mcg tablet 800 mcg PO QDAY RF: 0 magnesium oxide 500 mg capsule 500 mg PO QDAY PRN (Reason: diarrhea) RF: 0 empagliflozin [Jardiance] 10 mg tablet 10 mg PO DAILY RF: 0 dulaglutide [Trulicity] 0.75 mg/0.5 mL pen injector 0.75 mg SC QWEEK RF: 0 melatonin 5 mg tablet 5 mg PO HS PRN (Reason: Insomnia) RF: 0 B-complex with vitamin C capsule 1 cap PO DAILY RF: 0 naproxen sodium [Aleve] 220 mg capsule 220 mg PO BID PRN (Reason: pain) RF: 0 duloxetine [Cymbalta] 30 mg capsule,delayed release(DR/EC) 30 mg PO DAILY RF: 0 aspirin 81 MG tablet 81 mg PO DAILY@0800 RF: 0 pantoprazole 20 mg tablet,delayed release (DR/EC) 40 mg PO DAILY RF: 0 loratadine 10 MG tablet 10 mg PO DAILY RF: 0 metformin 500 MG tablet 500 mg PO .4 x qd RF: 0 sotalol 120 mg tablet 120 mg PO BID Qty: 180 RF: 3 potassium chloride 10 mEq tablet,ER particles/crystals 10 meq PO TID Qty: 270 RF: 3 furosemide 40 mg tablet 40 mg PO DAILY Qty: 90 RF: 3 Primary Care Provider: Daryl Heaton Referrals: Jonatan Gimenez DO [STAFF PHYSICIAN] - Disposition Disposition: Home, Self Care
[2021-09-16 18:03] VITALS: BP 136/84; PULSE 66; RESP 18; TEMP 36.9; O2SAT 98
== END 2021-09-16 18:25 | disposition home or self-care (01) ==
PROVIDERS: Emergency Provider Emergency Medicine; PCP Family Medicine; Visit Provider Emergency Medicine
DX: S52.125A Nondisplaced fracture of head of left radius, initial encounter for closed fracture (principal); I42.9 Cardiomyopathy, unspecified; E11.9 Type 2 diabetes mellitus without complications; S80.212A Abrasion, left knee, initial encounter; I10 Essential (primary) hypertension; W18.40XA Slipping, tripping and stumbling without falling, unspecified, initial encounter; Y93.9 Activity, unspecified; Y99.9 Unspecified external cause status; Y92.9 Unspecified place or not applicable; M99.01 Segmental and somatic dysfunction of cervical region; M99.02 Segmental and somatic dysfunction of thoracic region; M99.03 Segmental and somatic dysfunction of lumbar region; Z86.73 Personal history of transient ischemic attack (TIA), and cerebral infarction without residual deficits; Z95.810 Presence of automatic (implantable) cardiac defibrillator; Z79.82 Long term (current) use of aspirin; Z79.899 Other long term (current) drug therapy; Z79.84 Long term (current) use of oral hypoglycemic drugs
CPT/HCPCS: 29105; 73080; 73110; 73130; 99283

== ENCOUNTER 2021-09-25 15:35 | Outpatient (CLI) | payer OTHER, SELFPAY ==
--- NOTE | 2021-09-25 15:40 | RAD_ITS ---
STUDY: X-RAY - LEFT ELBOW REASON FOR EXAM: Female, 55 years old. FX L RADIUS TECHNIQUE: 3 view(s) of the elbow. COMPARISON: 09/16/2021 RAD/Elbow min 3 Views IMPRESSION: Bone bridging across radial neck fracture. Electronically Signed: Daryl Hilario MD at 6:19 EDT ,
== END 2021-09-25 23:59 | disposition home or self-care (01) ==
LOC: RAD 15:37
PROVIDERS: PCP Family Medicine; Referring Provider Physician Assistant; Visit Provider Physician Assistant
DX: S52.135A Nondisplaced fracture of neck of left radius, initial encounter for closed fracture (principal)
CPT/HCPCS: 73080

== ENCOUNTER → 2021-10-12 | Outpatient (CLI) | payer OTHER, SELFPAY ==
--- NOTE | 2021-10-12 10:56 | RAD_ITS ---
STUDY: X-RAY - LEFT ELBOW REASON FOR EXAM: Female, 55 years old. Follow-up of radial head fracture. TECHNIQUE: 3 view(s) of the elbow. COMPARISON: 09/16/2021. FINDINGS: Healing fracture of the radial neck with minimal periosteal reaction and no complications. Normal radiocapitellar and ulnotrochlear articulations. The soft tissue structures are unremarkable. RAD/Elbow min 3 Views IMPRESSION: Healing fracture of the radial head. No complicating features. Electronically Signed: Mariusz Steinberg MD at 13:48 EDT ,
== END | disposition home or self-care (01) ==
LOC: RAD 10:55
PROVIDERS: PCP Family Medicine; Visit Provider Orthopaedic Surgery
DX: S52.135D Nondisplaced fracture of neck of left radius, subsequent encounter for closed fracture with routine healing (principal)
CPT/HCPCS: 73080

== ENCOUNTER 2021-11-08 12:30 | Outpatient (RCR) | payer OTHER, SELFPAY ==
--- NOTE | 2021-10-16 09:13 | HP.PTEVAL_ITS ---
Patient's Visit Information KELVIN GATES is a 55 year old F referred to Physical Therapy by Dr. Jonatan Gimenez DO with a diagnosis of L radial neck fracture. Date of Evaluation: 10/16/21 Physical Therapist: Severo Sanchez, PT, ATC - Visit Plan Frequency: 2-3x /Week Duration: 4-6 Weeks Plan: Focus on L elbow and wrist ROM x 2 weeks, then incorporate L UE strengthening focus on wrist and elbow musculature - Subjective DOI: 09/16/21. 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 Pt reports she stayed at [employer] but experienced increasingly worse pain throughout the day. Pt reports she then went to the ER and was x-rayed. Pt reports she had a radial neck fracture. Pt notes she was splinted for 2 weeks , then placed into a sling for 2 weeks. Pt reports she is still in a lot of pain at this time. Pt reports the pain will still take her breath away. Pt reports she is also having a difficult time with straightening out her L elbow. Pt reports mild tingling in her L hand. Pt is R hand dominant. 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 Pt reports she has difficulty sleeping at night secondary to LBP. 0/10 pain while at rest, 7/10 at worst (placing an iten on a shelf in her bedroom) - Pain L elbow Pain Intensity (Out of 10): 0 Pain Intensity Range: 7 - Objective Neuro: B UE sensation is WNL to light touch. B bicipital reflex= 2/3. Palpation: Pt is sore throughout the proximal radius. No obvious deformity at this time. ROM: R wrist pronation= 180, supination= 120; R elbow ROM 0-3-145. L wrist pronation= 180, supination= 40; L elbow ROM 0-20-140. MMT: L wrist flex= 17, ext= 17 #F; R wrist flex= 24, ext= 21 #F. 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 strength: R hand 55#F, L hand 30 #F - Balance/Special Test Scores Quick DASH Score: 81.8175 - Goals Goal 1:: Decrease L elbow pain x 50% to aid with IADL's Goal Time Frame: 4-6 Weeks Goal 2:: Increase L UE strength x 5-10#F to aid with return to work without limitation Goal Time Frame: 4-6 Weeks Goal 3:: Increase L wrist supination x 20 degrees to aid with IADL's Goal Time Frame: 4-6 Weeks Goal 4:: I with HEP Goal Time Frame: 4-6 Weeks - Rehabilitation Potential Physical Therapy Diagnosis: Pt has L elbow pain, L UE weakness, and limited wrist supination ROM secondary to L radial neck fracture Rehabilitation Potential: Good - Anticipated Interventions Patient/Client Instruction: Educate patient on: Condition, Plan of Care For the Purpose of:: To improve self management Therapeutic Exercise to Include: Strength training, Flexibilty training, Passive ROM, Active ROM For the Purpose of:: To decrease pain, To increase ROM, To improve muscle performance and motor function Manual Therapy Techniques to Include: Soft tissue mobilization For the Purpose of:: To decrease pain Thank you for the opportunity to evaluate your patient. For Medicare and Medicare HMO plans, please review the plan of care and approve it. It will need to be FAXED BACK to us at [phone] for Medicare purposes. For Medicare only, by signing this I certify the plan of care. Please let me know if there are questions or concerns regarding this plan of care. Physician Signature: Date:
--- NOTE | 2021-12-19 07:39 | HP.PT.NRP ---
KELVIN GATES was seen in my office for initial evaluation on 10/16/21. The following Plan of Care was established for this patient: Initial Frequency: 2-3x /Week Initial Duration: 4-6 Weeks Patient/Client Instruction: Educate patient on: Condition, Plan of Care For the Purpose of:: To improve self management Therapeutic Exercise to Include: Strength training, Flexibilty training, Passive ROM, Active ROM For the Purpose of:: To decrease pain, To increase ROM, To improve muscle performance and motor function Manual Therapy Techniques to Include: Soft tissue mobilization For the Purpose of:: To decrease pain This patient was last seen in our office . Pertinent comments regarding their Physical therapy will appear below: Pt was treated for 8 PT visits for L elbow pain through the date of 11/08/21. Pt has not returned through todays date, and is discontinued at this time. At this point I will be discontinuing this patient from physical therapy. I would be happy to see this patient again in the future if found appropriate by the physician. Thank you! Severo Sanchez, PT, ATC Balance/Gait/Functional tests - Balance/Special Test Scores Quick DASH Score: 15.9075
== END 2021-11-08 19:00 | disposition home or self-care (01) ==
LOC: PT 12:30
PROVIDERS: PCP Family Medicine; Referring Provider Orthopaedic Surgery; Visit Provider Orthopaedic Surgery
DX: S52.135D Nondisplaced fracture of neck of left radius, subsequent encounter for closed fracture with routine healing (principal); X58.XXXD Exposure to other specified factors, subsequent encounter
CPT/HCPCS: 97110; 97140; 97161

== ENCOUNTER → 2022-04-18 | Outpatient (CLI) | payer OTHER, SELFPAY ==
--- NOTE | 2022-04-18 12:52 | BI_ITS ---
MAMMOGRAPHY - BILATERAL SCREENING REASON FOR EXAM: Female, 56 years old. Routine annual screening examination. PERTINENT HISTORY: Sister with breast cancer. Aunts with breast cancer. TECHNIQUE: Digital bilateral breast sandra (3D mammographic acquisition) in the CC and MLO projections. 2-D mediolateral oblique (MLO) and craniocaudad (CC) views of both breasts were obtained. CAD: Full Field Digital Mammography with Computer Added Detection was performed. COMPARISON: Comparison is made with prior study dated 12/31/2019 and 04/27/2018. FINDINGS: Breast Composition: The breasts are almost entirely fatty. There are no dominant masses or suspicious calcifications. Small bilateral axillary lymph nodes. A battery pack from a pacemaker device is seen in the left axillary region. No other significant abnormalities are identified. There has been no significant change since the prior study. BI/SCRN MAMM (CAD)W/SANDRA BILAT IMPRESSION: Stable bilateral screening mammogram. Yearly follow-up mammogram recommended. (A) ASSESSMENT CATEGORY: BIRADS Category 2: Benign. A letter regarding these results will be sent to the patient by the facility within 30 days. Approximately 10% of breast cancers are not detected by mammography. A normal mammogram should not delay biopsy of a clinically suspicious abnormality. [id number] Electronically Signed: Venancio Thacker MD at 15:10 EDT ,
--- NOTE | 2022-04-18 13:21 | BD_ITS ---
STUDY: DUAL ENERGY X-RAY ABSORPTIOMETRY / DXA REASON FOR EXAM: Female, 56 years old. [id number] TECHNIQUE: Bone Mineral Density (BMD) measurements of lumbar spine and bilateral hips were obtained. COMPARISON: Comparison is made with prior study dated 09/20/2010. FINDINGS: Lumbar Spine (L1-L4): g/cm2 (0.867) / T-score (-2.1) / Z-score (-0.8) Findings are suggestive of osteopenia with a moderate fracture risk. Left Femur Total: g/cm2 (0.930) / T-score (-0.1) / Z-score (0.8) Left Femoral Neck: g/cm2 (0.777) / T-score (-0.6) / Z-score (0.6) Right Femur Total: g/cm2 (0.925) / T-score (-0.1) / Z-score (0.7) Right Femoral Neck: g/cm2 (0.781) / T-score (-0.6) / Z-score (0.6) The T-Scores on the most recent prior examination were: Lumbar Spine (L1-L4): There has been worsening of bone density since the previous examination. Left Femur Total: which represents a worsening of 15.7%. Right Femur Total: which represents a worsening of 16.2%. BD/Dexa Bone Density Study IMPRESSION: The patient is considered osteopenic as outlined below according to World [employer] Organization (WHO) criteria with a moderate fracture risk. There has been worsening of bone density since the previous examination. Reference Information: The T-score is the number of standard deviations above or below the standard which is normal for young adults at their peak bone mineral density. The World Health Organization (WHO) interprets the T-scores as follows: Above -1 Normal bone density Between -1 and -2.5 Osteopenia Equal to / or below -2.5 Osteoporosis As a practical clinical guideline, osteopenia may be graded as follows: Mild -1 through -1.5 Moderate -1.6 through -2.0 Severe -2.1 through -2.4 The Z-score is the number of standard deviations above or below age-matched controls. A Z-score of less than -1.5 would be considered abnormal. References: 1. NIH Osteoporosis and Related Bone Diseases www osteo.org 2. International Society for Clinical Densitometry www iscd.org 3. National Osteoporosis Foundation www nof.org Electronically Signed: Venancio Thacker MD at 13:12 EDT ,
== END | disposition home or self-care (01) ==
LOC: OPBD 12:51
PROVIDERS: PCP Family Medicine; Visit Provider Family Medicine
DX: Z12.31 Encounter for screening mammogram for malignant neoplasm of breast (principal); Z80.3 Family history of malignant neoplasm of breast; M85.80 Other specified disorders of bone density and structure, unspecified site; Z78.0 Asymptomatic menopausal state
CPT/HCPCS: 77063; 77067; 77080

== ENCOUNTER → 2022-07-10 | Outpatient (CLI) | payer OTHER, SELFPAY ==
--- NOTE | 2022-07-10 12:44 | ECHOD_ITS ---
Reason For Study: Presence of xenogenic heart valve Procedure This was a 2D Doppler, Color Flow transthoracic echocardiogram. The exam was of adequate technical quality. Exam performed in department. Left Ventricle Normal LV size. Mid cavitary false tendon noted. Left ventricular systolic function is normal. The estimated ejection fraction is 60 %. Diastolic function is indeterminate. Apical wall motion abnormality may reflect pacemaker activation. Right Ventricle Normal RV size. ICD or pacer leads identified within the right ventricle. Normal systolic function. Atria Normal left atrium. Normal right atrium. ICD or pacer leads identified within the right atrium. No doppler evidence for ASD. Mitral Valve There is mild mitral annular calcification. Extension of the mitral annular calcification onto the base of the posterior mitral valve leaflet. Trivial mitral valve insufficiency. Tricuspid Valve Normal tricuspid valve. Moderate (2+) eccentric tricuspid valve insufficiency. Right ventricular systolic pressure estimated to be 26 mmHg. Aortic Valve Stable appearing bioprosthetic aortic valve apparatus. Pulmonic Valve The pulmonic valve is not well visualized. Trivial pulmonic valve insufficiency. Great Vessels Normal sized aortic root. Pericardium/Pleural No pericardial effusion. MMode/2D Measurements & Calculations LVIDd: 4.8 cm IVSd: 1.2 cm LVOT diam: 2.1 cm LVIDs: 3.2 cm LVPWd: 0.86 cm LVOT area: 3.4 cm2 RVDd: 3.6 cm FS: 33.8 % Ao root diam: 3.6 cm LAV(MOD-bp): 60.3 ml LVAd ap4: 25.2 cm2 LAV(MOD-bp) Indexed: 27.6 ml/m2 LVLd ap4: 7.5 cm LAV(MOD-sp2): 74.5 ml EDV(MOD-sp4): 74.3 ml LAV(MOD-sp4): 48.9 ml EDV(sp4-el): 72.2 ml LVAs ap4: 13.7 cm2 LVLs ap4: 5.9 cm ESV(MOD-sp4): 30.4 ml ESV(sp4-el): 26.8 ml EF(MOD-sp4): 59.1 % EF(sp4-el): 62.9 % LVAd ap2: 25.4 cm2 SV(MOD-sp4): 43.9 ml SV(MOD-sp2): 50.9 ml LVLd ap2: 7.3 cm EDV(MOD-sp2): 75.5 ml EDV(sp2-el): 74.8 ml LVAs ap2: 13.3 cm2 LVLs ap2: 6.2 cm ESV(MOD-sp2): 24.7 ml ESV(sp2-el): 24.1 ml EF(MOD-sp2): 67.3 % SV(sp4-el): 45.4 ml LA dimension(2D): 3.0 cm LA A4 area: 18.0 cm2 RA A4 area: 11.7 cm2 Time Measurements MV dec time: 0.22 sec Doppler Measurements & Calculations MV E max anderson: 70.0 cm/sec Lat Peak E' Anderson: 9.8 cm/sec Med Peak E' Anderson: 4.5 cm/sec MV A max anderson: 72.2 cm/sec E/E' lat: 7.2 E/E' med: 15.4 MV E/A: 0.97 Ao V2 max: 227.8 cm/sec LV V1 max: 131.1 cm/sec MV dec slope: 311.6 cm/sec2 Ao max P.8 mmHg LV V1 max P.9 mmHg Ao V2 mean: 161.6 cm/sec LV V1 mean P.2 mmHg Ao mean P.6 mmHg LV V1 mean: 96.8 cm/sec Ao V2 VTI: 49.3 cm LV V1 VTI: 27.6 cm AV (velocity ratio): 0.56 DAYTON(I,D): 1.9 cm2 DAYTON(V,D): 2.0 cm2 SV(LVOT): 94.1 ml PA V2 max: 83.0 cm/sec TR max anderson: 234.1 cm/sec PA max PG (full): 1.6 mmHg TR max P.9 mmHg ECHO/Echo Complete Interpretation Summary Left ventricular systolic function is normal. The estimated ejection fraction is 60 %. Apical wall motion abnormality may reflect pacemaker activation. Mid cavitary false tendon noted. There is mild mitral annular calcification. Extension of the mitral annular calcification onto the base of the posterior mi tral valve leaflet. Trivial mitral valve insufficiency. Moderate (2+) eccentric tricuspid valve insufficiency. Stable appearing bioprosthetic aortic valve apparatus. Trivial pulmonic valve insufficiency. Right ventricular systolic pressure estimated to be 26 mmHg. Diastolic function is indeterminate. ICD or pacer leads identified within the right atrium ICD or pacer leads identified within the right ventricle. Ordering Physician: Daryl Lamb Referring Physician: Daryl Lamb Performed By: Belen Ayoub
== END | disposition home or self-care (01) ==
LOC: CVS 12:43
PROVIDERS: PCP Family Medicine; Referring Provider Internal Medicine Cardiovascular Disease; Visit Provider Internal Medicine Cardiovascular Disease
DX: I47.20 Ventricular tachycardia, unspecified (principal); I42.9 Cardiomyopathy, unspecified; I47.1 Supraventricular tachycardia; I44.2 Atrioventricular block, complete; Z95.810 Presence of automatic (implantable) cardiac defibrillator; Z95.3 Presence of xenogenic heart valve; Z98.890 Other specified postprocedural states
CPT/HCPCS: 93306

== ENCOUNTER → 2023-05-01 | Outpatient (CLI) | payer OTHER, SELFPAY ==
--- NOTE | 2023-05-01 12:49 | BI_ITS ---
MAMMOGRAPHY - BILATERAL SCREENING REASON FOR EXAM: Female, 57 years old. Routine annual screening examination. PERTINENT HISTORY: Daughter with breast cancer. Sister with breast cancer. Aunts with breast cancer. Remote right needle breast biopsy. TECHNIQUE: Digital bilateral breast sandra (3D mammographic acquisition) in the CC and MLO projections. 2-D mediolateral oblique (MLO) and craniocaudad (CC) views of both breasts were obtained. CAD: Full Field Digital Mammography with Computer Added Detection was performed. COMPARISON: Comparison is made with prior examination April 18, 2022 and July 02, 2019. FINDINGS: Breast Composition: The breasts are almost entirely fatty. There are no dominant masses or suspicious calcifications. A battery pack from a left-sided pacemaker is seen in the left axilla. Stable small benign-appearing bilateral axillary lymph nodes. No other significant abnormalities are identified. There has been no significant change since the prior study. BI/SCRN MAMM (CAD)W/SANDRA BILAT IMPRESSION: Stable bilateral screening mammogram. Yearly follow-up mammogram recommended. (A) ASSESSMENT CATEGORY: BIRADS Category 2: Benign. A letter regarding these results will be sent to the patient by the facility within 30 days. Approximately 10% of breast cancers are not detected by mammography. A normal mammogram should not delay biopsy of a clinically suspicious abnormality. [id number] Electronically Signed: Venancio Thacker MD at 13:54 EST ,
== END | disposition home or self-care (01) ==
LOC: OPBI 12:48
PROVIDERS: PCP Family Medicine; Referring Provider Family Medicine; Visit Provider Family Medicine
DX: Z12.31 Encounter for screening mammogram for malignant neoplasm of breast (principal); Z85.3 Personal history of malignant neoplasm of breast
CPT/HCPCS: 77063; 77067

== ENCOUNTER → 2023-05-01 | Outpatient (CLI) | payer OTHER, SELFPAY ==
--- NOTE | 2023-05-01 12:40 | RAD_ITS ---
EXAM: XR LEFT FOOT COMPLETE, 3 OR MORE VIEWS CLINICAL INDICATION: TENDINITIS HEEL SPUR TECHNIQUE: Frontal, lateral and oblique views of the left foot. COMPARISON: No relevant prior studies available. FINDINGS: BONES/JOINTS: There is prominent calcaneal spur of roughly 8 mm. No acute fracture. No subluxation. Normal alignment. Preservation of the joint space. No sclerotic or destructive changes observed. Mild degenerative change of the dorsum of the navicular bone and cuneiform. Mild degenerative change mid tarsal-metatarsal junctions. SOFT TISSUES: Soft tissue swelling and blurring of fat planes at the heel pad suggesting plantar fasciitis, the gallbladder is roughly 2.4 cm at the level of the calcaneal spur. No soft tissue gas. No radiopaque foreign body. RAD/Foot min 3 Views IMPRESSION: Prominent calcaneal spur and swelling and blurred fat planes involving the heel pad and the more anterior plantar soft tissues. Suspected plantar fasciitis. Electronically Signed: Eliza Echavarria MD at 7:15 EST ,
== END | disposition home or self-care (01) ==
LOC: RAD 12:33
PROVIDERS: PCP Family Medicine; Referring Provider Podiatrist; Visit Provider Podiatrist
DX: M76.62 Achilles tendinitis, left leg (principal); M77.32 Calcaneal spur, left foot
CPT/HCPCS: 73630

== ENCOUNTER → 2023-10-10 | Outpatient (CLI) | payer OTHER, SELFPAY ==
[2023-10-10 15:30] LABS: Microalbumin,Random Urine 11.7 mg/L (NO RANGE EST.); Microalbumin:Creatinine Ratio 9.1 mg/g CRE (<30 mg/g CRE)
== END | disposition home or self-care (01) ==
LOC: LAB 08:18
PROVIDERS: PCP Family Medicine; Referring Provider Family Medicine; Visit Provider Family Medicine
DX: L74.4 Anhidrosis (principal); E11.9 Type 2 diabetes mellitus without complications
CPT/HCPCS: 82043; 82570

== ENCOUNTER → 2024-05-06 | Outpatient (CLI) | payer OTHER, SELFPAY ==
--- NOTE | 2024-05-06 13:27 | BI_ITS ---
MAMMOGRAPHY - BILATERAL SCREENING REASON FOR EXAM: Female, 58 years old. Routine annual screening examination. PERTINENT HISTORY: Daughter with breast cancer. Sister with breast cancer. Aunts with breast cancer. TECHNIQUE: Digital bilateral breast sandra (3D mammographic acquisition) in the CC and MLO projections. 2-D mediolateral oblique (MLO) and craniocaudad (CC) views of both breasts were obtained. CAD: Full Field Digital Mammography with Computer Added Detection was performed. COMPARISON: Comparison is made with prior study dated May 01, 2023 and April 18, 2022. FINDINGS: Breast Composition: There are scattered areas of fibroglandular density. There are no dominant masses or suspicious calcifications. A pacemaker battery pack is seen in the left axilla. Stable bilateral fat-containing axillary lymph nodes. No other significant abnormalities are identified. There has been no significant change since the prior study. BI/SCRN MAMM (CAD)W/SANDRA BILAT IMPRESSION: Stable bilateral screening mammogram. Yearly follow-up mammogram recommended. (A) ASSESSMENT CATEGORY: BIRADS Category 2: Benign. A letter regarding these results will be sent to the patient by the facility within 30 days. Approximately 10% of breast cancers are not detected by mammography. A normal mammogram should not delay biopsy of a clinically suspicious abnormality. [id number] Electronically Signed: Venancio Thacker MD at 14:35 EST ,
== END | disposition home or self-care (01) ==
LOC: OPBI 13:25
PROVIDERS: PCP Family Medicine; Referring Provider Family Medicine; Visit Provider Family Medicine
DX: Z12.31 Encounter for screening mammogram for malignant neoplasm of breast (principal)
CPT/HCPCS: 77063; 77067

== ENCOUNTER → 2024-05-22 | Outpatient (CLI) | payer OTHER, SELFPAY | END | disposition home or self-care (01) | LOC: RAD 11:26 | PROVIDERS: PCP Family Medicine; Referring Provider Podiatrist; Visit Provider Podiatrist | DX: M79.672 Pain in left foot (principal); M25.572 Pain in left ankle and joints of left foot | CPT/HCPCS: 73610; 73630 ==

== ENCOUNTER 2024-05-28 08:34 | Outpatient (CLI) | payer OTHER, SELFPAY ==
--- NOTE | 2024-05-28 09:00 | RAD_ITS ---
EXAM: XR LEFT FOOT COMPLETE, 3 OR MORE VIEWS CLINICAL INDICATION: POSSIBLE FRACTURE TECHNIQUE: Frontal, lateral and oblique views of the left foot. COMPARISON: No relevant prior studies available. FINDINGS: BONES/JOINTS: Unremarkable. No acute fracture. No subluxation. Normal alignment. Preservation of the joint space. No sclerotic or destructive changes observed. SOFT TISSUES: Unremarkable. No soft tissue swelling or gas. No radiopaque foreign body. RAD/Foot min 3 Views IMPRESSION: Negative left foot x-rays. Electronically Signed: Tirp Feliciano MD at 23:31 EST ,
== END 2024-05-28 23:59 | disposition home or self-care (01) ==
LOC: MTRAD 08:36
PROVIDERS: PCP Family Medicine; Referring Provider Podiatrist; Visit Provider Podiatrist
DX: S90.32XD Contusion of left foot, subsequent encounter (principal)
CPT/HCPCS: 73630

== ENCOUNTER → 2024-07-09 | Outpatient (CLI) | payer OTHER, SELFPAY ==
--- NOTE | 2024-07-09 09:00 | RAD_ITS ---
HISTORY: RIGHT HIP PAIN. TECHNIQUE: XR Hip Unilateral with Pelvis when performed; 2-3 Views. COMPARISON: CT 10/20/2018. FINDINGS: OSSEOUS STRUCTURES: No acute displaced fracture identified. Note that overlapping bowel shadows may obscure osseous detail. Mineralization unremarkable. JOINT SPACES: No dislocation. Joint spaces maintained. SOFT TISSUES: Surgical clips in the right groin. RAD/HIP, UNI W/ Pelvis 2-3 Views IMPRESSION: No acute displaced fracture or dislocation identified. Electronically Signed: Hellen Bo MD at 9:26 EST ,
== END | disposition home or self-care (01) ==
LOC: RAD 08:53
PROVIDERS: PCP Family Medicine; Referring Provider Specialist; Visit Provider Specialist
DX: M25.551 Pain in right hip (principal)
CPT/HCPCS: 73502

== ENCOUNTER → 2024-08-04 | Outpatient (CLI) | payer OTHER, SELFPAY ==
--- NOTE | 2024-08-04 09:51 | RAD_ITS ---
EXAM: HAND MIN 3 VIEWS CLINICAL HISTORY: Joint pain. COMPARISON: None. TECHNIQUE: Three views were submitted. FINDINGS: No abnormality is seen. RAD/Hand Min 3 Views IMPRESSION: No abnormality is seen. Reading Location: [place] [id number]
--- NOTE | 2024-08-04 09:51 | RAD_ITS ---
EXAM: HAND MIN 3 VIEWS CLINICAL HISTORY: Joint pain. COMPARISON: None. TECHNIQUE: Three views were submitted. FINDINGS: No abnormality is seen. RAD/Hand Min 3 Views IMPRESSION: No abnormality is seen. Reading Location: [place] [id number]
[2024-08-04 12:37] LABS: Absolute Lymphocyte Count 2.51 X10^3/uL (0.83-4.51); Absolute Neutrophil Count 5.2 X10^3/uL (2.0-7.7); Basophil# 0.04 X10^3/uL; Basophil% 0.5 % (0-1); Eosinophil# 0.05 X10^3/uL; Eosinophils% 0.6 % (0-5); Hematocrit 43.7 % (37-47); Hemoglobin 13.7 g/dL (12.0-15.0); Lymphocyte # 2.51 X10^3/ul (0.83-4.51); Lymphocyte % 30.2 % (19-41); Mean Corp Hgb Conc 31.4 g/dL (32-36); Mean Corpuscular Hgb 27.9 pg (27.0-32.0); Mean Platelet Vol. 9.5 fl (6.2-12.0); Monocyte# 0.49 X10^3/uL; Monocyte% 5.9 % (0-10); NRBC Flagged by Analyzer 0 % (0-5); Neutrophil % 62.6 % (47-70); Platelet Count 347 K/mm3 (150-450); RBC Distribution Width SD 45.7 fl (35.1-43.9); Red Blood Count 4.91 M/mm3 (4.2-5.4); White Blood Count 8.3 K/mm3 (4.4-11.0)
[2024-08-04 13:21] LABS: ALB/GLOB Ratio 0.8 RATIO (0.9-2.4); AST(SGOT) 16 U/L (15-37); Alanine Aminotransfer ALT/SGPT 17 U/L (13-56); Albumin, Serum 3.4 g/dL (3.2-5.0); Alkaline Phosphatase 119 U/L (45-117); Anion Gap 7 (5-15); BUN 15 mg/dL (7-18); BUN/Creat Ratio 17.8 RATIO (10-20); CPK Total, Creatine Kinase 71 U/L (26-192); Calcium,Total 8.9 mg/dL (8.5-10.1); Chloride 102 mmol/L (98-107); Creatinine, Serum 0.84 mg/dL (0.55-1.02); EST Glomerular Filtration Rate 73 mL/min (>60); Est Glom Filt Rate - Afr Amer 89 mL/min (>60); Globulin 4.1 g/dL (2.2-4.2); Glucose 120 mg/dL (74-106); Potassium 3.9 mmol/L (3.5-5.1); Protein, Total 7.5 g/dL (6.4-8.2); Rheumatoid Factor < 10.0 IU/mL (<15); Sodium Level 137 mmol/L (136-145)
[2024-08-04 13:25] LABS: Vitamin D,25 Hydroxy 39.1 ng/mL
[2024-08-04 13:55] LABS: Protein, Urine (Random) 17.1 mg/dL (<11.9)
[2024-08-04 14:02] LABS: Color, Urine Yellow (Yellow); Glucose, Dipstick 1000 mg/dl (Normal); Ketone-Dipstick Negative (Negative); Leukocyte Esterase-Dipstick 25 /ul (Negative); Nitrite-Dipstick Negative (Negative); Occult Blood-Urine Negative /ul (Negative); Protein-Dipstick Negative (Negative); Urine Bilirubin Dipstick Negative (Negative); Urine Clarity Clear (Clear); Urine Urobilinogen Normal (Normal)
[2024-08-05 11:08] LABS: Anti-dsDNA Ab <1 IU/mL (0-9); RNP Ab 0.8 AI (0.0-0.9)
[2024-08-05 13:07] LABS: CCP IgG Antibodies 2 units (0-19); Immunoglobulin G 1318 mg/dL (586-1602)
[2024-08-07 16:08] LABS: Anti-Nuclear Antibody Test Positive (.); Smith Ab <0.2 AI (0.0-0.9)
== END | disposition home or self-care (01) ==
LOC: MTLAB 09:46
PROVIDERS: PCP Family Medicine; Referring Provider Internal Medicine; Visit Provider Internal Medicine
DX: M25.50 Pain in unspecified joint (principal); R76.8 Other specified abnormal immunological findings in serum; R22.1 Localized swelling, mass and lump, neck; E55.9 Vitamin D deficiency, unspecified
CPT/HCPCS: 36415; 73130; 80053; 81002; 82306; 82550; 82570; 82784; 84156; 85025; 86038; 86200; 86225; 86235; 86431

== ENCOUNTER 2024-08-10 11:00 | Outpatient (RCR) | payer OTHER, SELFPAY ==
--- NOTE | 2024-06-30 10:21 | HP.PTEVAL_ITS ---
Patient's Visit Information Visit Information Visit Information: KELVIN GATES is a 58 year old F referred to Physical Therapy by Dr. Jerod Gonzalez DPM with a diagnosis of L peroneal tendinitis. Date of Evaluation: 06/29/24 Physical Therapist: Jericho Clay DPT Visit Plan Frequency: 2x /Week Duration: 6 Weeks Plan: 1) DN x1 per week 2) light IASTIM, active ROM 3) calf stretching 4) Slow loading of L lateral peroneals, DF, G/S complex 5) progress walking out of CAM boot to normal footwear without pain 6)proprioception to increase stability of L ankle IE at eval: ankle circles, YTB light ankle EVR (light loading) Subjective Subjective: Pt. is here today for her initial evaluation with diagnosis of L peroneal tendinitis. Pt. reports The day before Thanksgiving she was trying to get up from the floor, slight slipped and felt a pop in her L lateral ankle. Pt. reports having fairly intense pain since. Pt. is now in a CAM boot which has been helpful. She is also off work currently. 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. Pt. does have a pacemaker/defibrillator so she is unable to have an MRI. Pt. has not done much exercises due to her pain. Pt. describes no N/T in either LE. Pt. is able to ambulate with CAM boot with decent tolerance. Pt. does have pain with sleeping. She is hopeful to reduce symptoms in order to get back to all work and recreational activities. Pain L lateral ankle: Pain Intensity (Out of 10): 4 Pain Intensity Range: 2 and 6 Objective Objective: POSTURE: Pt. has increased wt. shift to R side. Pt. is able to stand with equal wt. shift, but does have increased symptoms. PALPATION: Pt. has increased pain near ATFL and CFL, and along peroneal tendon distally. Mild soreness at achillies, but not much. Mild swelling at lateral ankle, non pitting. Pt. has no discoloration as well. NEURO: Pt. has normal sensation and normal DTR throughout. ROM: R ankle full without increase in symptoms. L ankle: PROM: DF 8 increase NW, EVR 7deg increase NW, PF 34deg increase NW, INV 8deg mild increase increase NW. AROM: L ankle: DF6 increase NW, PF 30deg increase NW, EVR 6deg increase NW, INV 6deg mild increase NW. MMT: DF 23.1# NE, PF 18# mild increase NW, INV 12# NE, EVR 4# increase NW. Pt. has normal knee strength GAIT: Pt. ambulates with CAM boot with good tolerance. Without boot, but has fairly rigid foot, increased knee hyper extension during end of stance, decreased R step length. STAIRS: DNT Balance/Special Test Scores Lower Extremity Functional Score: 25 Goals Goal 1:: LTG: pt. to be I with HEP. Goal Time Frame: 4-6 Weeks Goal 2:: STG: Pt. to sleep throughout the night without increase in symptoms. Goal Time Frame: 2 Weeks Goal 3:: LTG: pt. to have symmetrical B ankle ROM without increase in symptoms. Goal Time Frame: 4-6 Weeks Goal 4:: LTG: Pt. to have symmetrical strength throughout BLEs. Goal Time Frame: 4-6 Weeks Goal 5:: LTG: Pt. to be able to ambulate with normal footwear with out increase in L ankle pain. Goal Time Frame: 4-6 Weeks Goal 6:: LTG: Pt. to complete standing and walking for 6-8 hours a day without increase in symptoms. to simulate all work activities. Goal Time Frame: 4-6 Weeks Rehabilitation Potential Physical Therapy Diagnosis: Pt. has signs and symptoms consistent with L peroneal tendinitis. Pt. has marked hypomobility, weakness, difficulty walking an increased pain. Pt. would benefit from PT to address the above limitations progressing back to all recreational and work activities with improved tolerance. Rehabilitation Potential: Excellent Anticipated Interventions Patient/Client Instruction: Educate patient on: Condition, Plan of Care, Risk Factors and Benefits of Fitness Program For the Purpose of:: To improve decision making, To facilitate caregiver knowledge, To improve self management, To prevent re-injury, To improve ability to perform tasks related to life management and To improve tolerance to ADL's Therapeutic Exercise to Include: Strength training, Power training, Balance training, Postural training, Flexibilty training, Gait and locomotor training, Passive ROM and Active ROM For the Purpose of:: To decrease pain, To increase ROM, To improve nutrient delivery to tissue, To improve muscle performance and motor function, To improve gait and locomotor functions, To improve health of tissue, To decrease soft tissue restriction, To increase flexibility/ROM and To improve balance Text: Thank you for the opportunity to evaluate your patient. For Medicare and Medicare HMO plans, please review the plan of care and approve it. It will need to be FAXED BACK to us at [phone] for Medicare purposes. For Medicare only, by signing this I certify the plan of care. Please let me know if there are questions or concerns regarding this plan of care. Physician Signature: Date:
== END 2024-08-10 19:00 | disposition home or self-care (01) ==
LOC: PT 11:00
PROVIDERS: PCP Family Medicine; Referring Provider Podiatrist; Visit Provider Podiatrist
DX: M76.72 Peroneal tendinitis, left leg (principal)
CPT/HCPCS: 97035; 97110; 97140; 97161; 97530

== ENCOUNTER → 2024-08-18 | Outpatient (CLI) | payer OTHER, SELFPAY | END | disposition home or self-care (01) | LOC: MTLAB 13:46 | PROVIDERS: PCP Family Medicine; Referring Provider Internal Medicine; Visit Provider Internal Medicine | DX: R22.1 Localized swelling, mass and lump, neck (principal); R76.8 Other specified abnormal immunological findings in serum | CPT/HCPCS: 87086; 87088 ==

== ENCOUNTER → 2024-09-01 | Outpatient (CLI) | payer OTHER, SELFPAY ==
--- NOTE | 2024-09-01 14:03 | US_ITS ---
PROCEDURE: HEAD/NECK SOFT TISSUE REASON FOR EXAM: CONCERN FOR LYMPHADENOPATHY BILATERAL NECK COMPARISON: None. TECHNIQUE: Ultrasound of the neck performed using standard technique. FINDINGS: Bilateral neck lymph nodes detected. Largest on the right measures 1.5 x 1.1 cm. Largest on left measuring 1.5 x 0.5 cm. These have a fatty hilum. No concerning nodules or lymph nodes. No fluid collection US/Head/Neck Soft Tissue IMPRESSION: No evidence of neck lymphadenopathy by sonographic criteria. Benign appearing lymph nodes seen with fatty hilum. Reading Location: [id number]
== END | disposition home or self-care (01) ==
LOC: US 14:01
PROVIDERS: PCP Family Medicine; Referring Provider Internal Medicine; Visit Provider Internal Medicine
DX: R22.1 Localized swelling, mass and lump, neck (principal)
CPT/HCPCS: 76536

== ENCOUNTER 2024-10-17 15:44 | Emergency (ER) | payer OTHER, SELFPAY ==
[2024-10-17 15:46] VITALS: BP 141/92; PULSE 89; RESP 18; TEMP 36.6; O2SAT 100; BMI 34.2
[2024-10-17 15:48] VITALS: BP 141/92; PULSE 89; RESP 18; TEMP 36.6; O2SAT 100
--- NOTE | 2024-10-17 16:25 | RAD_ITS ---
PROCEDURE: HAND MIN 3 VIEWS 10/17/2024 REASON FOR EXAM: CAT BITE TECHNIQUE: 3 views of the right hand COMPARISON: 08/04/2024 FINDINGS: Bones: No acute fracture or dislocation. Joints: Moderate triscaphe joint arthrosis. Soft tissues: Soft tissues are unremarkable. Other: RAD/Hand Min 3 Views IMPRESSION: NO ACUTE FRACTURE OR DISLOCATION. If acute hand or wrist trauma is suspected an d initial radiographs are negative or equivocal repeat radiographs in 10-14 days MRI without IV contrast or CT without IV contr ast is usually appropriate as the next imaging study. (ACR Appropriateness Criteria: Acute Hand and Wrist Trauma 2018) Reading Location: [id number]
[2024-10-17] MEDS: Amox/Clavulanate 875 MG Tablet PO (16:44)
--- NOTE | 2024-10-17 16:44 | EX.ED.UPPERE ---
HPI History of Present Illness Chief Complaint: Bite Informant: patient Narrative Narrative: Patient 58-year-old female 53, recent MRI that showed with history of bioprosthetic valve replacements secondary to bicuspid aortic valve while presenting for increased pain of her right thumb after a cat bite yesterday. She was watching her daughter's 1-year-old cat and went to pet it when it suddenly bit her. She notes today she has had increased bruising and pain now of the thumb and radiating up the finger. Last tetanus was in July of this year. She is taken ibuprofen and Tylenol for pain. Denies any fever or chills. Denies any nausea or vomiting. No other complaints or concerns at this time. Tetanus Immunization: <5 years [facility] Medical History TIA (transient ischemic attack) Keloid cicatrix Right groin wound History of left heart catheterization (LHC) (~07/27/19) History of bicuspid aortic valve Essential hypertension Bulging of cervical intervertebral disc Segmental and somatic dysfunction of lumbar region Segmental and somatic dysfunction of thoracic region Segmental and somatic dysfunction of cervical region Strain of lumbar region Cervical strain, acute NSVT (nonsustained ventricular tachycardia) PSVT (paroxysmal supraventricular tachycardia) Cardiomyopathy Implantable cardioverter-defibrillator (ICD) in situ Complete heart block h/o r shoulder surgery H/O cardiac pacemaker Positive VIRGIL (antinuclear antibody) Pericarditis Arrhythmia requiring replacement of cardiac pacemaker Diabetes type 2, controlled Bursitis of hip H/O: pneumonia Bulging of cervical intervertebral disc Cyst of right ovary Home Medications ?Medication ?Instructions ?Recorded ?Last Taken ?Type aspirin 81 mg tablet,delayed 81 mg PO DAILY@0800 10/24/13 07/27/19 History release loratadine 10 mg tablet 10 mg PO DAILY 05/05/17 Unknown History folic acid 800 mcg tablet 800 mcg PO QDAY 06/26/17 Unknown History metformin 500 mg tablet 500 mg PO .4 x qd 06/26/17 Unknown History multivitamin 1 tab PO QDAY 06/26/17 Unknown History dulaglutide 0.75 mg/0.5 mL 0.75 mg subcut QWEEK 03/12/18 Unknown History subcutaneous pen injector (Trulicity) empagliflozin 10 mg tablet 10 mg PO DAILY 03/12/18 Unknown History (Jardiance) magnesium oxide 500 mg capsule 500 mg PO QDAY PRN diarrhea 03/12/18 Unknown History melatonin 5 mg tablet 5 mg PO HS PRN Insomnia 10/01/18 Unknown History pantoprazole 20 mg tablet,delayed 40 mg PO DAILY 12/03/19 Unknown History release duloxetine 30 mg capsule,delayed 30 mg PO DAILY 12/29/20 Unknown History release (Cymbalta) cholecalciferol (vitamin D3) 25 25 mcg PO DAILY 11/30/21 Unknown History mcg (1,000 unit) tablet potassium chloride 10 mEq 10 meq PO TID #270 tabs 06/06/22 Unknown Rx tablet,extended release(part/cryst) sotalol 120 mg tablet 120 mg PO BID #180 tabs 05/05/24 Unknown Rx amoxicillin 500 mg tablet 500 mg PO .COMPLEX #4 tabs 09/01/24 Unknown Rx furosemide 40 mg tablet 40 mg PO DAILY edema/SOB #90 tabs 09/29/24 Unknown Rx amoxicillin 875 mg-potassium 1 tab PO Q12H #20 tabs 10/17/24 Unknown Rx clavulanate 125 mg tablet Allergy/AdvReac Type Severity Reaction Status Date / Time fluconazole (From Diflucan) Allergy Hives Verified 10/17/24 15:45 hydroxychloroquine sulfate Allergy Hives Verified 10/17/24 15:45 (From Plaquenil) prednisone Allergy Unknown Verified 10/17/24 15:45 Sulfa (Sulfonamide Allergy Hives Verified 10/17/24 15:45 Antibiotics) Family History Father Prostate cancer Diabetes Stomach ulcer Mother Hypertension Diabetes Heart disease Sister Breast cancer Surgical History History of aortic valve replacement with bioprosthetic valve (08/17/19) History of aortic valve repair (~10/18/10) History of radiofrequency ablation procedure for cardiac arrhythmia (~1994) History of aortic root repair (~10/18/10) History of hysterectomy S/P tubal ligation Hx of cholecystectomy S/P removal of thyroid nodule Social History Smoking Status: Never smoker second hand exposure: No alcohol intake: never substance use type: does not use caffeine: Yes Type: coffee Number of servings: 4 ROS ROS ED Constitutional Constitutional ED: Denies chills or fever(s) Musculoskeletal Musculoskeletal: Reports other Details: Right thumb pain Integumentary Reports other Details: Cat bite to right hand, bruising to the base of the right thumb Neurologic Neurologic: Denies paresthesias or weakness Hematologic/Lymphatic Hematologic/Lymphatic: Denies easy bleeding or easy bruising EXAM Physical Exam Const Vital Signs: 10/17/24 15:46 10/17/24 15:48 Temperature 97.8 F 97.8 F Temperature Source Temporal Temporal Pulse Rate 89 89 Respiratory Rate 18 18 Blood Pressure 141/92 H 141/92 H Blood Pressure Mean 108 108 Pulse Ox 100 100 Oxygen Delivery Method Room Air Room Air Positive well nourished and well developed General Appearance ED: well developed and NAD Chest Wall inspection of chest normal Resp normal respiratory effort and clear to auscultation bilaterally Cardio regular rate and regular rhythm Cardio Narrative: 2+ radial pulse present Extremity full ROM Extremity Narrative: No edema of the hand appreciated. She has a puncture prachi at the base of the right thumb as well as at the thenar eminence. At the base of the dorsal aspect of the thumb there is associated bruising. No associated erythema or lymphangitic streaking. No associated edema of the thumb appreciated. Normal extension and flexion. No pain with passive range of motion. No crepitus appreciated. Neuro oriented x3, moves all extremities, no focal motor deficits and no sensory deficits noted Psych mental status grossly normal Skin Skin Narrative: 2 punctate lesions over the thumb (dorsal and palmar aspect respectively) consistent with a cat bite. Ecchymosis at the base of the thumb on the dorsal aspect. MDM MDM MDM Narrative Medical decision making narrative: Patient noted for cat bite to her right hand that occurred yesterday. Does have a history of bicuspid aortic valve replacement (bioprosthetic). She overall is well-appearing. Has bruising but at this time no findings consistent with an acute cellulitis. Given mechanism of bite will start apparently on Augmentin as it is a high risk for infection as she is having increasing pain. Will obtain x-ray to rule out foreign body. X-ray of the right hand reviewed by myself does not show any acute foreign body or free air. Patient is given first dose antibiotics in the emergency room. Given return precautions. Given instructions that should she have progressive redness or swelling she should immediately return to the emergency room as these are high risk of complication. She verbalized agreement nursings plan. Discharged home in stable condition. States she does not need any prescription for pain medicine that she has what she needs at home. Discharge Plan Triage Chief Complaint: Bite ED Provider: Daria Platt Dx/Rx/DC Orders Clinical Impression: Cat bite of right thumb, History of aortic valve replacement with bioprosthetic valve Instructions: ED Cat Bite Prescriptions: New amoxicillin-pot clavulanate 875-125 mg tablet 1 tab PO Q12H Qty: 20 0RF No Action multivitamin tablet 1 tab PO QDAY folic acid 800 mcg tablet 800 mcg PO QDAY magnesium oxide 500 mg capsule 500 mg PO QDAY PRN (Reason: diarrhea) empagliflozin [Jardiance] 10 mg tablet 10 mg PO DAILY dulaglutide [Trulicity] 0.75 mg/0.5 mL pen injector 0.75 mg SC QWEEK melatonin 5 mg tablet 5 mg PO HS PRN (Reason: Insomnia) duloxetine [Cymbalta] 30 mg capsule,delayed release(DR/EC) 30 mg PO DAILY cholecalciferol (vitamin D3) 25 mcg (1,000 unit) tablet 25 mcg PO DAILY potassium chloride 10 mEq tablet,ER particles/crystals 10 meq PO TID Qty: 270 4RF amoxicillin 500 mg tablet 500 mg PO .COMPLEX Qty: 4 3RF Rx Instructions: 500 mg orally take 4 tabs by mouth by mouth 30-60 minutes prior to dental procedure; aspirin 81 MG tablet 81 mg PO DAILY@0800 Patient Comments: WAS TOLD NOT TO STOP PER CEBUL pantoprazole 20 mg tablet,delayed release (DR/EC) 40 mg PO DAILY Patient Comments: REFLUX loratadine 10 MG tablet 10 mg PO DAILY Patient Comments: ALLERGIES metformin 500 MG tablet 500 mg PO .4 x qd Patient Comments: DIABETES sotalol 120 mg tablet 120 mg PO BID Qty: 180 4RF furosemide 40 mg tablet 40 mg PO DAILY Qty: 90 4RF Primary Care Provider: Daryl Heaton Referrals: Daryl Heaton MD [Primary Care Provider] - Activity Restrictions/Additional Instructions: If you have fever, chills, worsening redness, streaking up the hand or swelling of the finger please return to the emergency room. Take the entire course of antibiotics. Print Language: Wolof Disposition Disposition: Home, Self Care
== END 2024-10-17 17:17 | disposition home or self-care (01) ==
PROVIDERS: Emergency Provider Emergency Medicine; PCP Family Medicine; Referring Provider Emergency Medicine; Visit Provider Emergency Medicine
DX: S61.051A Open bite of right thumb without damage to nail, initial encounter (principal); E11.9 Type 2 diabetes mellitus without complications; I10 Essential (primary) hypertension; Z95.3 Presence of xenogenic heart valve; W55.01XA Bitten by cat, initial encounter
CPT/HCPCS: 73130; 99282

== ENCOUNTER → 2025-01-07 | Outpatient (CLI) | payer OTHER, SELFPAY | END | disposition home or self-care (01) | LOC: MFPLAB 15:46 | PROVIDERS: PCP Family Medicine; Referring Provider Family Medicine; Visit Provider Family Medicine | DX: E11.9 Type 2 diabetes mellitus without complications (principal) | CPT/HCPCS: 83036; 85007 ==